=== PATIENT | female | born 1990 | race Caucasian/White ===

== ENCOUNTER 2025-01-20 15:24 | Emergency (ER) | payer OTHER, SELFPAY ==
--- NOTE | 2025-01-20 15:26 | ED.ABDPAIN ---
HPI - Abdominal Pain General Chief Complaint: Abdominal Pain Stated Complaint: abdominal pain Time Seen by Provider: 01/20/25 15:25 Source: patient Mode of arrival: ambulatory Limitations: no limitations History of Present Illness HPI narrative: Patient is a 34-year-old female who presents with generalized abdominal pain for 1 week. Reports it is worsened each day. Patient had CT scan on that her PCP ordered. All it showed was hiatal hernia. Patient states she has had jelly like fatty stools. Reports tenderness to touch even by close. Reports she feels abdomen is distended. History of cholecystectomy and appendectomy. Reports pain in abdomen is now radiating to her back to her shoulder and giving her headache. Patient has tried [id number] pain medication with no relief. Patient has not had any nausea vomiting for 3 days. Related Data Allergies Allergy/AdvReac Type Severity Reaction Status Date / Time No Known Allergies Allergy Mild Unverified 01/20/25 15:35 Review of Systems Review of Systems: All systems reviewed & are unremarkable except as noted in HPI and below Constitutional: Constitutional: Denies body ache(s), Denies chills, Denies fatigue, Denies fever(s), Denies headache(s), Denies malaise and Denies weakness Eyes: Eyes: Denies blurry vision, Denies irritation and Denies loss of vision ENT: Denies otalgia, Denies headache(s), Denies nasal discharge, Denies sinus pain and Denies sore throat Cardiovascular: Cardiovascular: Denies chest pain, Denies irregular heart rhythm and Denies dyspnea Respiratory: Respiratory: Denies dyspnea Gastrointestinal: Gastrointestinal: Reports abdominal pain, Denies melena, Denies hematochezia, Denies diarrhea, Denies nausea and Denies vomiting Musculoskeletal: Musculoskeletal: Denies back pain, Denies myalgias and Denies arthralgias Integumentary/Breasts: Skin/Breast: Denies pruritus and Denies rash Neurologic: Denies headache(s), Denies loss of vision and Denies weakness Psychiatric: Psychiatric: Reports no additional psychiatric complaints Endocrine: Endocrine: Denies fatigue PMFSH Comments At time of signature, agree with nursing past medical, surgical, social and family history. There is no relevant family history pertinent to the presenting complaint. Exam Const: General: cooperative, healthy appearing, comfortable, no acute distress and well nourished Nutritional Appearance: well nourished Orientation/consciousness: patient oriented x3 Limitations: no limitations HENMT: Head: normal to inspection, normocephalic and atraumatic Ears: hearing grossly normal bilaterally and external ears normal Face/Nose/Sinus: Normal external nose present, normal facial exam and face symmetric Face and sinus: normal facial exam and face symmetric Mouth: Yes lip normal Eyes: General: appearance normal, both eyes and all related structures Alignment and Position: alignment normal and position normal Periorbital: periorbital findings normal Eyelids: eyelids normal Pupils: Equal, round and reactive pupils present EOM: EOMs intact bilaterally Neck: Neck: normal visual inspection, full ROM and supple Chest: Chest palpation & inspection: normal inspection of the chest Resp: Effort & Inspection: normal respiratory effort and able to speak in complete sentences Auscultation: clear to auscultation bilaterally Cardio: Rate: regular rate Rhythm: regular rhythm Heart sounds: S1 normal heart sound present and S2 normal heart sound present GI: Inspection: normal to inspection GI Palp: Yes abdominal tenderness, Yes Firmness to palpation present (GI) and No Guarding due to palpation present (GI) Auscultation: normal bowel sounds Rectal Exam: deferred Skin: General skin exam: normal color and no rashes or lesions noted Neuro: General: patient oriented x3 and moves all extremities Cranial nerves: Yes Equal, round and reactive pupils present Speech: normal speech Gait exam (Neuro): Normal gait present Extrem: General: normal to inspection, full ROM and no edema Psych: Appearance: grossly normal and well kempt Mental Status: mental status grossly normal Speech and movement: Normal speech and movement present Affect: normal affect Attitude: cooperative Thought process: Normal thought process present Course Course Emergency Course: Patient being transferred to [facility] for Abdominal pain needing labs, imaging and pain control. Portions of this record may have been created with voice recognition software Level of Care: Express Care Visit Vital Signs Vital signs: Vital Signs Temperature 36.6 C 01/20/25 15:33 Pulse Rate 87 01/20/25 15:33 Respiratory Rate 24 H 01/20/25 15:33 Blood Pressure 119/78 01/20/25 15:33 Pulse Oximetry 100 01/20/25 15:33 Oxygen Delivery Room Air 01/20/25 15:33 Temperature 36.6 C 01/20/25 15:33 Pulse Rate 87 01/20/25 15:33 Respiratory Rate 24 H 01/20/25 15:33 Blood Pressure 119/78 01/20/25 15:33 Pulse Oximetry 100 01/20/25 15:33 Oxygen Delivery Room Air 01/20/25 15:33 Reviewed Transfer Transfered to: [facility] Transportation: ALS Transfer rationale: Abdominal pain needing labs, imaging and pain control. Accepting physician: Felipe WAKEFIELD MDM - Abdominal Pain MDM Narrative Medical decision making narrative: Patient being transferred to [facility] for Abdominal pain needing labs, imaging and pain control. Patient was tearful on examination and diaphoretic. Differential Diagnosis Differential diagnosis: Likely abdominal pain, calculus of kidney, diverticulitis, gastroenteritis, pancreatitis and small bowel obstruction Discharge Plan Discharge Clinical Impression: Abdominal pain Qualifiers: Abdominal location: generalized Qualified Code(s): R10.84 - Generalized abdominal pain Patient Disposition: Acute Care Hospital Condition: Stable Patient Language: Kyrgyz Follow-up/Referrals: UNKNOWN,DOCTOR [Non-Staff] - Time of Disposition: 16:05
[2025-01-20 15:33] VITALS: BP 119/78; PULSE 87; RESP 24; TEMP 36.6; O2SAT 100
--- OUTSIDE RECORDS SUMMARY | 2025-01-20 17:18 | XMS_ITS | Referral Summary ---
Author Organization [facility] Address [address] [place] [address] Care Team Providers Care Embedded Software Test Engineer Name Role Phone Shasha Duckworth MD Primary Care Provider [phone] Encounters Date Type Department Care Team Description 01/20/2025 3:54 PM CDT Emergency [facility] Emergency Department [address] [place] [id number] from Last 3 Months Allergies Active Allergy Reactions Criticality Noted Date Comments Adhesive Rash Medium 10/24/2017 Clindamycin Other (See comments) Low 03/01/2019 Feels like I swallowed glass Duloxetine Metronidazole Itching,Other (See comments) Low 12/21/2018 METRONIDAZOLE GEL Discharge and Pain Pregabalin Other (See comments) Low 03/01/2019 hallucinations Medications diphenhydrAMINE (BENADRYL) 25 mg capsule Take 1 tablet by mouth 3 (three) times a week Active ALPRAZolam (XANAX) 2 mg tablet Take 1 tablet by mouth as needed 5 05/20/2019 Active amitriptyline (ELAVIL) 25 mg tablet Take 1 tablet by mouth daily Active dexmethylphenida te (FOCALIN) 10 mg tablet Take 1 tablet by mouth once a week 0 04/25/2019 Active estazolam (PROSOM) 2 mg tablet Take 1 tablet by mouth daily 5 05/03/2019 Active HYDROcodone-acet aminophen (NORCO) 5-325 mg per tablet TK 1 T PO BID PRF SEVERE PAIN 0 04/25/2019 Active metoprolol XL (TOPROL-XL) 50 mg 24 hr tablet TK 1 T PO QD 0 06/04/2019 Active norelgestromin-e thin.estradiol (ORTHO EVRA) 150-35 mcg/[address] 1 patch on the skin once a week Active tiZANidine (ZANAFLEX) 4 mg tablet 5 05/17/2019 Active Active Problems Problem Noted Date Diagnosed Date Fibromyalgia 04/04/2013 Snoring 02/27/2013 Gastroesophageal reflux disease 02/27/2013 Mitral valve prolapse 02/27/2013 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 Gender Identity Not on file Sexual Orientation Not on file Last Filed Vital Signs Vital Sign Reading Time Taken Comments Blood Pressure 130/90 07/12/2023 4:10 PM CDT Pulse 70 07/12/2023 4:10 PM CDT Temperature 36.1 C (96.9 F) 07/12/2023 12:30 PM CDT Respiratory Rate 18 07/12/2023 4:10 PM CDT Oxygen Saturation 99% 07/12/2023 4:10 PM CDT Inhaled Oxygen Concentration - - Weight 73.5 kg (162 lb) 07/12/2023 12:30 PM CDT Height 167.6 cm (5' 6 ) 07/12/2023 12:30 PM CDT Body Mass Index 26.15 07/12/2023 12:30 PM CDT Plan of Treatment Not on file Medical Devices Implanted Type Area Senior Operations Manager Device Identifier Shelf Expiration Date Model / Serial / Lot Plate Plate Bilateral: Mandible Insurance COMMERCIAL GENERIC [facility] ANTHEM ACCESS CHOICE [facility] Advance Directives For more information, please contact: [phone] * Full Code (Latest Code Status on File) Date Activated Date Inactivated Comments 06/07/2019 9:59 AM 06/07/2019 8:37 PM Care Teams Embedded Software Test Engineer Relationship Specialty Start Date End Date Shasha Duckworth MD PCP - General Nurse Practitioner 07/12/23
--- OUTSIDE RECORDS SUMMARY | 2025-01-20 17:18 | XMS_ITS | Continuity of Care Document ---
Author Organization [facility] Address [address] [place] [address] Phone Care Team Providers Care Floriculture Professor Name Role Phone Paty Toussaint Unavailable Unavailab le Procedures Procedure Date ENDOSCOPIC ULTRASOUND EXAM UPPER GI ENDOSCOPY BIOPSY Advance Directives Directive Yes / No Effective Date File Name No Information Encounters Encounter Description Practice Location Reason(s) For Visit Diagnoses Date Provider Providers Copied on Encounter [facility] [address], [place], [place], [id number], tel:[phone] [facility] No Information [address], [place], [id number] , [place]. tel: [phone] [facility], [address], [place], [place], [address], [place] tel:[phone] [facility] No Information [address] [facility] [address], [place], [address], [place]. tel: [phone] Referring Provider: Key Ceballos, [address] [place], [address]. tel:[phone] [facility], [address], [place], [place], [id number], [place] tel:[phone] [facility] Acute pancreatitis, unspecified complication status, unspecified pancreatitis type [address], [place], [address], [place]. tel: [phone] Family History Family Member Type Diagnosis Age At Onset No Information Payers Payer name Insurance type Covered republican ID Authorfaisal malin(s) No Information Social History Type Description Quantity Date Captured Comments Alcohol Use Details Unknown Caffeine Use Details Unknown Tobacco Use Status No Information Smoking Status No Information Sex Female Chief Complaint And Reason For Visit No Information Reason For Referral Reason For Referral No Information Plan Of Treatment Date Type Action Status Referral Ordered: GI ENDOSCOPIC ULTRASOUND Appointment date/timeframe: 06/07/2019 ordered History Of Present Illness Encounter Date Complaint History Of Prese nt Illness No Information Functional Status Date Functional Assessmen t No Information Instructions Date Instruction Additional Infor mation No Information Assessments Type Assessment Date No Information Patient Care Teams Name Effective Dates (start - stop) Status Members No Information
--- OUTSIDE RECORDS SUMMARY | 2025-01-20 17:18 | XMS_ITS | Clinical Summary ---
Author Organization [facility] [employer] Address [address] [place] [address] Care Team Providers Care Wafer Cutter Name Role Phone Paty Rahman MD Primary Care Provider [phone] Source Comments [facility],non-owned Affiliates and Associated Physician Practices is amultiple site organization consisting of ambulatory clinics and hospital sitesin [place], [place], [place] and [place]. This disclosure is being madepursuant to the Care Everywhere program and may not contain all information available regarding this patient. Last updated 18.[facility] [employer] Allergies Active Allergy Reactions Criticality Noted Date Comments Adhesive Sensitivity Rash Medium 10/24/2017 Clindamycin Other 03/01/2019 Feels like I swallowed glass Duloxetine Other 03/01/2019 hallucinations Pregabalin Other 03/01/2019 hallucinations Metronidazole Itching,Other 12/21/2018 METRONIDAZOLE GEL Discharge and Pain Milnacipran Myalgias,Seizures High 03/18/2016 Patient is unsure about reaction. But states the reaction at the time was very bad. Medications * Be aware that medications may not be up to date on this document. Alwaysverify current medications with the patient. lidocaine (Lidoderm) 5 % patchIndications :Josias-Danlos syndrome (HCC) Apply 1 (one) patch to skin once daily 30 patch 024 Active diphenhydrAMINE (Benadryl Allergy) 25 MG tablet Take 1 (one) tablet by mouth as needed for Allergies Active dicyclomine (Bentyl) 10 MG capsuleIndicatio ns:Irritable Bowel Syndrome Take 1 (one) capsule by mouth 3 times daily as needed Reasons: Irritable Bowel Syndrome 270 capsule 024 Active metoprolol succinate XL 24hr (Toprol XL) 50 MG tabletIndication s:POTS (postural orthostatic tachycardia syndrome) TAKE 1 TABLET BY MOUTH TWICE DAILY 100 tablet 1 024 Active Additional Information Patient taking differently:50 mg OralDAILY, Reported on 11/07/2024 glycopyrrolate (Robinul) 1 MG tabletIndication s:Primary focal hyperhidrosis, unspecified Take 1 (one) tablet by mouth 4 times daily 120 tablet 025 Active tiZANidine (Zanaflex) 4 MG tabletIndication s:Josias-Danlos syndrome (HCC) Take 1 (one) tablet to 3 (three) tablets by mouth every 8 hours as needed for Muscle Spasms 270 tablet 2 025 Active amitriptyline (Elavil) 25 MG tabletIndication s:Insomnia, persistent,Fibro myalgia TAKE 1 TABLET BY MOUTH EVERY EVENING 100 tablet 1 025 Active naltrexone (Revia) 4.5 MG compd capsuleIndicatio ns:Fibromyalgia Take 1 (one) capsule by mouth at bedtime 90 capsule 1 025 Active pancrelipase (Creon) 37899-58035 units capsuleIndicatio ns:Pancreatic Insufficiency Take 1 (one) capsule by mouth 3 times daily with meals Reasons: Pancreatic Insufficiency 90 capsule 5 025 Active suvorexant (Belsomra) 20 MG tabletIndication s:Insomnia, unspecified type Take 1 (one) tablet by mouth nightly as needed for Insomnia 100 tablet 1 025 Active lisdexamfetamine (Vyvanse) 20 MG capsuleIndicatio ns:Attention or concentration deficit Take 1 (one) capsule by mouth once daily 30 capsule 025 Active HYDROcodone-acet aminophen (Fullerton) 5-325 MG tabletIndication s:Other chronic pain Take 1 (one) tablet by mouth every 6 hours as needed for Pain 8 tablet 025 2024 Active cholestyramine light (Questran Light; Prevalite) 4 g packet Take 8 (eight) g by mouth once daily 180 Each 1 025 Active ALPRAZolam (Xanax) 1 MG tabletIndication s:Generalized anxiety disorder Take 0.5 (one-half) tablet to 1 (one) tablet by mouth 2 times daily as needed for Anxiety or Insomnia 60 tablet 025 Active hyoscyamine (Levsin) 0.125 MG IR tablet Take 1 (one) tablet by mouth every 4 hours as needed for Spasms 50 tablet 025 Active HYDROcodone-acet aminophen (NORCO) 5-325 MG tablet Take 1 (one) tablet by mouth every 6 hours as needed for Pain 2024 Discontinued(T x Complete) pancrelipase (Creon) 05119-26956 units capsuleIndicatio ns:Pancreatic Insufficiency Take 1 (one) capsule by mouth 3 times daily with meals Reasons: Pancreatic Insufficiency 90 capsule 5 024 2024 Discontinued(R eorder) cholestyramine light (Questran Light; Prevalite) 4 g packet Take 4 (four) g by mouth once daily 180 Each 1 024 2024 Discontinued(R eorder) suvorexant (Belsomra) 20 MG tabletIndication s:Insomnia, unspecified type Take 1 (one) tablet by mouth nightly as needed for Insomnia 100 tablet 1 025 2024 Discontinued(R eorder) lisdexamfetamine (Vyvanse) 10 MG capsuleIndicatio ns:Attention or concentration deficit Take 1 (one) capsule to 2 (two) capsules by mouth once daily 60 capsule 025 2024 Discontinued(R eorder) ALPRAZolam (Xanax) 1 MG tabletIndication s:Generalized anxiety disorder Take 0.5 (one-half) tablet to 1 (one) tablet by mouth 2 times daily as needed for Anxiety or Insomnia 60 tablet 025 2024 Discontinued(R eorder) cholestyramine light (Questran Light; Prevalite) 4 g packet Take 4 (four) g by mouth once daily 180 Each 1 025 2024 Discontinued(R eorder) cholestyramine light (Questran Light; Prevalite) 4 g packet Take 4 (four) g by mouth once daily 180 Each 1 025 2024 Discontinued Active Problems Problem Noted Date Diagnosed Date History of cholecystectomy 05/09/2024 History of pancreatitis 05/09/2024 Primary focal hyperhidrosis, unspecified 024 Bile leak 05/09/2024 Medical marijuana use 05/09/2024 Bradycardia 04/13/2020 Vaginal discharge 02/09/2018 ADD (attention deficit disorder) 03/13/2017 POTS (postural orthostatic tachycardia syndrome) 03/28/2016 Insomnia, persistent 08/19/2014 Chronic fatigue syndrome 03/27/2013 Fibromyalgia 03/27/2013 Generalized anxiety disorder 03/27/2013 Palpitations 03/27/2013 Sleep stage dysfunction 03/27/2013 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 03/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 Overview (02/08/2021): Overview: Annotation - [id number]: s/p reconstruction 09/03/14 [place] Tremor 03/27/2013 Mitral valve prolapse 02/27/2013 Snoring 02/27/2013 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 Overview (03/02/2015): Resolved Problems Problem Noted Date Diagnosed Date Resolved Date Dehydration 03/17/2020 02/22/2021 Myofascial pain 03/01/2019 05/09/2024 Night sweats 06/26/2018 05/09/2024 Pancreatitis 11/28/2017 05/09/2024 Knee pain, bilateral 06/14/2017 024 Renal colic 01/11/2017 05/09/2024 Jaw pain 08/19/2014 05/09/2024 Esophageal spasm 01/29/2014 05/09/2024 Dysphagia, oropharyngeal phase 12/23/2013 05/09/2024 Encounters Date Type Department Care Team Description 01/20/2025 4:44 PM CDT Emergency [facility] [address] [place] [address] 01/20/2025 Travel [facility]/20/[facility] [address] [place] [address] [address] [place] [address] Paty Rahman MD GI Problem 01/20/2025 Telephone [facility] Internal Medicine [address] [place] [address] [address] [place] [address] Paty Rahman MD Pain Abdominal 01/16/2025 12:10 PM CDT - 01/16/2025 11:59 PM CDT Hospital Encounter [facility] Imaging Services - CT Scan [address] [place] [address], [address] [place] [address] Paty Rahman MD Discharge Disposition: Home or Self Care 01/15/2025 Refill [facility] Internal [address] [phone] Paty Rahman MD Refill Request 01/14/2025 Refill [facility] Internal Medicine [address] [place] [phone] Paty Rahman MD MEDICATION REFILL 01/09/2025 Refill [facility] Internal Medicine [address] [place] [phone] Janes Rodríguez MD MEDICATION REFILL 01/09/2025 Refill [facility] Internal Medicine [address] [place] [phone] Paty Rahman MD MEDICATION REFILL 01/08/2025 Refill [facility] Internal Medicine [address] [place] [phone] Paty Rahman MD Refill Request 01/02/2025 Travel 12/31/2024 11:40 AM CDT Office Visit [facility] Internal Medicine [address] [place] [phone] Paty Rahman MD Preventative health care (Primary Dx); Pancreatic insufficiency; Gastritis without bleeding, unspecified chronicity, unspecified gastritis type; Insomnia, unspecified type; Attention or concentration deficit; Need for hepatitis C screening test; Screening for HIV (human immunodeficiency virus); Generalized abdominal pain; Need for hepatitis B vaccination; Bowel habit changes 12/13/2024 Refill [facility] Internal Medicine [address] [place] [phone] Paty Rahman MD MEDICATION REFILL 12/12/[address] [phone] Paty Rahman MD Refill Request 12/09/[address] [phone] Paty Rahman MD Scheduling (Prefer with PCP ); Update 12/02/[address] [phone] Paty Rahman MD Medication Prior Auth Request 12/02/[address] [phone] Paty Rahman MD Medication Prior Auth Request 12/02/[address] [phone] Paty Rahman MD Medication Prior Auth Request (Belsomra); Rx Dosage From/Quantity Adjustment (Generic Vyvanse) 11/13/2024 Travel 11/07/2024 12:00 PM [employer] Office Visit [address] [place] [address] Eula Onofre APRN-DAISY Generalized anxiety disorder (Primary Dx); Attention or concentration deficit; Pain of finger of left hand; Atypical mole; Ingrown toenail; Primary focal hyperhidrosis, unspecified; Josias-Danlos syndrome; Insomnia, persistent; Weight gain; Fatigue, unspecified type 11/07/2024 Refill [facility] - Internal Medicine [address] [place] [phone] Paty Rahman MD MEDICATION REFILL from Last 3 Months Immunizations Immunization Administration Dates Next Due Covoskar Rosalina primary monoval ent 12+ yr 0.3mL Purple cap 01/02/2021 DTAP, HISTORIC VACCINE 04/06/2015 HEP B VACCINE, ADULT 3 DOSE 12/31/2024 INFLUENZA VACCINE 06/26/2018, 7,07/28/2015,2013,08/14/2012 INFLUENZA VACCINE, QUADR. (F LUZONE; FLULAVAL; FLUARIX; AFLURIA QUADRIVALENT; 6MO+), 0.5 ML (IIV4) 08/09/2021,06/30/2020,06/26/2018,2016,07/28/2015 INFLUENZA VACCINE, TRIV. (FL UZONE; FLULAVAL; FLUARIX; AFLURIA TRIVALENT; 6MO+), 0.5 ML (IIV3) 07/01/2024 TDAP (7yrs+) 09/04/2022,04/09/2015 TDAP, HISTORIC VACCINE 04/06/2015 Family History Medical History Relation Name Comments None Known Brother None Known Father Cancer Maternal Aunt None Known Maternal Grandfather None Known Maternal Grandmother None Known Maternal Uncle Diabetes Mother Hypertension Mother None Known Other None Known Paternal Aunt None Known Paternal Grandfather None Known Paternal Grandmother None Known Paternal Uncle None Known Sister Asthma Neg Hx CVA Neg Hx Cancer - Breast Neg Hx Cancer - Other Neg Hx Cancer - Skin, Melanoma Neg Hx Cancer - Skin, Non Melanoma Neg Hx Eczema Neg Hx Hemophilia Neg Hx Psoriasis Neg Hx Relation Name Status Comments Brother Alive Half brother Father Alive Maternal Aunt Maternal Grandfather Maternal Grandmother Maternal Uncle Mother Alive Other Paternal Aunt Paternal Grandfather Paternal Grandmother Paternal Uncle Sister Alive half sister Social History Tobacco Use Types Packs/Day Years Used Date Smoking Tobacco: Former Cigarettes Q uit: 11/09/2010 Smokeless Tobacco: Never Tobacco Cessation:Counseling Given: Yes Alcohol Use Standard Drinks/Week Comments Yes 0 (1 standard drink = 0.6 oz pur e alcohol) occassional PHQ-2 Answer Date Recorded Patient Health Questionnaire-2 Score 0 12/31/2024 Comments No Sex and Gender Information Value Date Recorded Sex Assigned at Not on file Legal Sex Female 10:08 AM [employer] Gender Identity Female 03/31/2022 6:45 PM CDT Sexual Orientation Not on file Last Filed Vital Signs Vital Sign Reading Time Taken Comments Blood Pressure 137/89 01/20/2025 4:46 PM CDT Pulse 67 01/20/2025 4:46 PM CDT Temperature 36.6 C (97.8 F) 01/20/2025 4:46 PM CDT Respiratory Rate 18 01/20/2025 4:46 PM CDT Oxygen Saturation 100% 01/20/2025 4:46 PM CDT Inhaled Oxygen Concentration - - Weight 81.6 kg (180 lb) 01/20/2025 4:46 PM CDT Height 167.6 cm (5' 6 ) 01/20/2025 4:46 PM CDT Body Mass Index 29.05 01/20/2025 4:46 PM CDT Plan of Treatment Upcoming Encounters Date Type Department Care Team (Late st Contact Info) Description 01/22/2025 9:30 AM CDT Office Visit [facility] - Internal Medicine [address] [place] [phone] Tomasa Srivastava, CLAIMS COUNSEL-BOX INSPECTOR [address] [place] [phone] 04/07/2025 10:40 AM CDT Office Visit [facility] - Internal Medicine [address] [place] [phone] Paty Rahman MD [address] [place] [phone] Health Maintenance Due Date Last Done Comments COVID-19 VACCINE ( season) 2024 10/27/2021, 01/02/2021, 12/10/2020 HEPATITIS B VACCINE (2 of 3 - 19+ 3-dose series) 01/28/2025 12/31/2024 PAP SMEAR 02/22/2025 02/22/2022, 03/11/2021 DTAP/TDAP/TD VACCINES (5 - Td or Tdap) 09/04/2032 09/04/2022, 04/09/2015, 04/06/2015, Additional history exists ZOSTER VACCINE (1 of 2) 2038 INFLUENZA VACCINE Completed 07/01/2024, , 06/30/2020, Additional history exists DEPRESSION SCREENING Completed 11/07/2024, 05/09/20 24 HEPATITIS C SCREENING Completed 01/09/2025 HIV SCREENING Completed 01/09/2025 HIB VACCINE Aged Out No longer eligi ble based on patient's age to complete this topic HPV VACCINE Aged Out No longer eligi ble based on patient's age to complete this topic MENINGOCOCCAL (Group B) VACCINE SHARED DECISION-MAKING Aged Out No longer eligible based on patient's age to complete this topic MENINGOCOCCAL GROUPS A/C/Y/W VACCINE Aged Out No longer eligible based on patient's age to complete this topic PNEUMOCOCCAL VACCINE Aged Out No long er eligible based on patient's age to complete this topic Procedures Procedure Name Priority Date/Time Associated Diagnosis Comments CT ABDOMEN PELVIS W CONTRAST Routine 01/16/2025 3:32 PM CDT Generalized abdominal pain CREATININE - POCT INTERFACED Routine 01/16/2025 1:56 PM CDT HIV-1 HIV-2 ANTIBODY + HIV P24 AG PANEL Routine 01/09/2025 11:49 AM CDT Screening for HIV (human immunodeficiency virus) HEPATITIS C ANTIBODY W RFLX PCR Routine 01/09/2025 11:49 AM CDT Need for hepatitis C screening test HELICOBACTER PYLORI UREA BREATH TEST Routine 01/09/2025 11:46 AM CDT Gastritis without bleeding, unspecified chronicity, unspecified gastritis type from Last 3 Months Results * CT Abdomen Pelvis W Contrast (01/16/2025 3:32 PM CDT) Anatomical Region Laterality Modality Abdomen, Pelvis Computed Tomogra phy 01/16/2025 3:58 PM CDT Impressions 01/16/2025 4:01 PM CDT IMPRESSION: Small hiatal hernia. No acute inflammatory process is seen within the abdomen or pelvis. > Interpreting Provider: Lui Humphreys MD on 01/16/2025 4:01 PM Narrative 01/16/2025 4:01 PM CDT Procedure: CT ABDOMEN PELVIS W CONTRAST Exam Date: 01/16/2025 3:34 PM Location: [facility] CT abdomen and pelvis with IV contrast Indication: R10.84: Generalized abdominal pain Technique: CT examination of the abdomen and pelvis was performed from the lung bases through the pubis symphysis after the administration of oral and IV contrast. Sagittal and coronal reconstructions were performed. Contrast: 100 cc of Isovue-370 was utilized. FINDINGS: No old studies are available for comparison purposes. The lung bases are clear of infiltrate. The visualized bony structures are unremarkable. There is no liver mass. There is no intrahepatic biliary dilatation. The patient is status post cholecystectomy. The pancreas is unremarkable. The spleen is unremarkable. There is no adrenal mass. There is no hydronephrosis. There are no renal calculi. There is no perinephric fat stranding. There is no renal mass. The aorta is normal in caliber. The IVC is normal in caliber. There is no retroperitoneal adenopathy. There is no mesenteric adenopathy. There is a small hiatal hernia. There is no gastric wall thickening. The small bowel loops in the upper abdomen are nondistended with no bowel wall thickening. Oral contrast reaches the colon. The colonic structures within the upper abdomen are normal in caliber with no bowel wall thickening. Within the pelvis: The appendix is not visualized to advantage. However there is no CT evidence for acute appendicitis. The bladder is unremarkable. The uterus is unremarkable. There are no adnexal masses. There is no free fluid within the pelvis. There is no inguinal adenopathy. There is no pelvic adenopathy. The bowel loops within the pelvis are unremarkable. Procedure Note Lui Humphreys MD - 01/16/2025 Procedure: CT ABDOMEN PELVIS W CONTRAST Exam Date: 01/16/2025 3:34 PM Location: [facility] CT abdomen and pelvis with IV contrast Indication: R10.84: Generalized abdominal pain Technique: CT examination of the abdomen and pelvis was performed fromthe lung bases through the pubis symphysis after the administration of oraland IV contrast. Sagittal and coronal reconstructions were performed. Contrast: 100 cc of Isovue-370 was utilized. FINDINGS: No old studies are available for comparison purposes. The lung bases are clear of infiltrate. The visualized bonystructures are unremarkable. There is no liver mass. There is no intrahepatic biliary dilatation.The patient is status post cholecystectomy. The pancreas is unremarkable. The spleen is unremarkable. There is no adrenal mass. There is no hydronephrosis. There are no renal calculi. There is no perinephric fat stranding. There is no renal mass. The aorta is normal in caliber. The IVC is normal in caliber. Thereis no retroperitoneal adenopathy. There is no mesenteric adenopathy. There is a small hiatal hernia. There is no gastric wall thickening. The small bowel loops in the upper abdomen are nondistended with nobowel wall thickening. Oral contrast reaches the colon. The colonicstructures within the upper abdomen are normal in caliber with no bowel wall thickening. Within the pelvis: The appendix is not visualized to advantage.However there is no CT evidence for acute appendicitis. The bladder is unremarkable. The uterus is unremarkable. There are no adnexal masses. There is no free fluid within the pelvis. There is no inguinal adenopathy. There is no pelvic adenopathy. The bowel loops withinthe pelvis are unremarkable. IMPRESSION: Small hiatal hernia. No acute inflammatory process is seen within the abdomen or pelvis. > Interpreting Provider: Lui Humphreys MD on 01/16/2025 4:01 PM us Paty Rahman MD CT ORDERABLES Final Result * CREATININE - POCT INTERFACED (01/16/2025 1:56 PM CDT) Creatinine POCT 0.73 0.70 - 1.20 mg/dL 01/16/2025 2:06 PM CDT [facility] eGFR >90 >=90 mL/min/1.7 3 m2 01/16/2025 2:06 PM CDT [facility] Blood BLOOD SPECIMEN / Unknown 01/16/2025 1:56 PM CDT 01/16/2025 2:06 PM CDT us Paty Rahman MD LAB - POINT OF CARE ORDERABLES Final Result [facility] [address] [place] [address] * HEPATITIS C ANTIBODY W RFLX PCR (01/09/2025 11:49 AM CDT) Hepatitis C Antibody Non Reactive Non Reactive [facility] INSURANCE BILL Comment: Performed at: - [address] [id number] End Lathe Operator: Anil Hall PhD, Phone: [phone] Interpretation Comment [facility] INSURANCE BILL Comment: Not infected with HCV unless early or acute infection is suspected (which may be delayed in an immunocompromised individual), or other evidence exists to indicate HCV infection. Blood BLOOD SPECIMEN / Unknown 01/09/2025 11:49 AM CDT 01/09/2025 Narrative [facility] INSURANCE BILL - 01/10/2025 7:09 AM CDT Performed at: [address] [id number] End Lathe Operator: Anil Hall PhD, Phone: [phone] us Paty Rahman MD LAB - CHEMISTRY ORDERABLES Fin al Result Performing Organization Address City/[facility] Co de Phone Number [facility] INSURANCE BILL [address] [place] [address] * HIV-1 HIV-2 ANTIBODY + HIV P24 AG PANEL (01/09/2025 11:49 AM CDT) HIV Screen 4th Generation w Reflex Non Reactive Non Reactive [facility] INSURANCE BILL Comment: HIV-1/HIV-2 antibodies and HIV-1 p24 antigen were NOT detected. There is no laboratory evidence of HIV infection. HIV Negative Blood BLOOD SPECIMEN / Unknown 01/09/2025 11:49 AM CDT 01/09/2025 Narrative [facility] INSURANCE BILL - 01/10/2025 7:09 AM CDT Performed at: 01 - [facility] [address] [place], [place] [id number] End Lathe Operator: Anil Hall PhD, Phone: [phone] Paty Rahman MD LAB - CHEMISTRY ORDERABLES Fin al Result Performing Organization Address City/[facility]/ZIP Co de Phone Number [facility] INSURANCE BILL [address] [place] [address] * HELICOBACTER PYLORI UREA BREATH TEST (01/09/2025 11:46 AM CDT) Helicobacter pylori Breath Negative Negative [facility] INSURANCE BILL Microbiology BREATH / Unknown 01/09/2025 11:46 AM CDT 01/09/2025 Narrative [facility] INSURANCE BILL - 01/10/2025 3:10 PM CDT Performed at: [facility] [id number] End Lathe Operator: Anil Hall PhD, Phone: [phone] Paty Rahman MD LAB - MICROBIOLOGY ORDERABLES Final Result Performing Organization Address [facility]/ZIP Co de Phone Number [facility] INSURANCE BILL [address] [place] [address] from Last [address] [place] [address] MEDICAID - OUT OF STATE [place] [facility] [place]: [facility] [id number] [place] [address] COMMERCIAL GENERIC Care Teams Wafer Cutter Relationship Specialty Start Date End Date Paty Rahman MD [address] [place] [phone] PCP - General Internal Medicine 05/09/24
--- OUTSIDE RECORDS SUMMARY | 2025-01-20 17:18 | XMS_ITS | Encounter Summary ---
Author Organization [facility] Address [address] [facility] [address] Care Team Providers Care Atomizer Assembler Name Role Phone Key Ceballos MD Primary Care Provider [phone] Abhinav Grajeda MD Primary Care Provider [phone] Key Ceballos MD Primary Care Provider [phone] Paty Rahman MD Primary Care Provider [phone] Reason for Visit * Reason Onset Date Comments Endometriosis 08/07/2020 Encounter Details Date Type Department Care Team (Late st Contact Info) Description 08/07/2020 Telephone [facility] [address] [place] [address] Semaj Owens Jr., MD [address] [facility] [address] [place], [place] [phone] Endometriosis Social History Tobacco Use Types Packs/Day Years Used Date Smoking Tobacco: Former Cigarettes Q uit: 11/09/2010 Smokeless Tobacco: Never Alcohol Use Standard Drinks/Week Comments Yes 0 (1 standard drink = 0.6 oz pur e alcohol) occassional Comments No Sex and Gender Information Value Date Recorded Sex Assigned at Not on file Legal Sex Female 10:08 AM CONE CHOCOLATE DIPPER Gender Identity Female 03/31/2022 6:45 PM CDT Sexual Orientation Not on file documented as of this encounter Miscellaneous Notes * Telephone Encounter - John Ryder - 08/07/2020 1:01 PM CDT Pt calling to report that she is having extreme cramps w/pain and is very fatigue. Pt is scheduled for surgery in Nov 2020 and says she cannot wait that long as the pain is unbearable. Pt would like to speak with MD or Nurse as soon as possible. Pt's CB #; [phone] documented in this encounter Plan of Treatment Upcoming Encounters Date Type Department Care Team (Late st Contact Info) Description 01/22/2025 9:30 AM CDT Office Visit [facility] - Internal Medicine [address] [place] [phone] Tomasa Srivastava, 3RD GRADE TEACHER-SHANK SANDER [address] [place] [phone] 04/07/2025 10:40 AM CDT Office Visit [facility] - Internal Medicine [address] [place] [phone] Paty Rahman MD [address] [place] [phone] documented as of this encounter Visit Diagnoses Not on filedocumented in this encounter Care Teams Atomizer Assembler Relationship Specialty Start Date End Date Key Ceballos MD PCP - General 11/05/20 11/09/20 Abhinav Grajeda MD [address] [place] [id number] PCP - General 03/20/20 11/04/20 Key Ceballos MD [address] [place] [address] PCP - General Internal Medicine 03/31/22 05/08/24 Paty Rahman MD [address] [address] PCP - General Internal Medicine 05/09/24 documented as of this encounter
--- OUTSIDE RECORDS SUMMARY | 2025-01-20 17:18 | XMS_ITS | Encounter Summary ---
Author Organization [facility] Address [address] [facility] [place] [address] Care Team Providers Care Sales Support Administrator Name Role Phone Paty Rahman MD Primary Care Provider [phone] Reason for Visit * Reason Onset Date Comments GI Problem 01/20/2025 Encounter Details Date Type Department Care Team (Late st Contact Info) Description 01/20/2025 Telephone [facility] Medical [facility] - Internal Medicine [address] [facility] [address] [place] [phone] Paty Rahman MD [address] [place] [phone] GI Problem Social History Tobacco Use Types Packs/Day Years [...] on file Legal Sex Female 10:08 AM PUMP OPERATOR Gender Identity Female 03/31/2022 6:45 PM CDT Sexual Orientation Not on file documented as of this encounter Miscellaneous Notes * Telephone Encounter - Eli Eaton LPN - 01/20/2025 1:55 PM CDT Called to patient. * Telephone Encounter - Paty Rahman MD - 01/20/2025 12:25 PM CDT Agree, small hiatal hernia is unlikely causing severe abdominal symptoms. Given the severity of herabdominal pain, I would not be able to treat that over the phone. She would need to go to urgent care or ER. I did send a prescription for Levsin as she stated dicyclomine had helped in the past. This is similar. Orders Placed This Encounter hyoscyamine (Levsin) 0.125 MG IR tablet Sig: Take 1 (one) tablet by mouth every 4 hours as needed for Spasms Dispense: 50 tablet Refill: 0 * Telephone Encounter - Eli Eaton LPN - 01/20/2025 8:53 AM CDT Warm transfer from service center. Due to hernia on CT . Pain from beasts to pelvis. Swollen and tender. Extra large pajama bottoms do not fit. In bed for 5days. Has had abdominal distention off and on for a few hours to a day, this time it has lasted a week. Headache, back, shoulders, legs hurt. Movement hurts bad. If she gets out of bed to get something, she has to lie down on the floor for awhile before returning to bed-due to increase pain. Nauseated. Vomited a tiny bit one time. Diarrhea-for months. Every time she urinates she also has loose stool. Here 12/31/24. Much worse since then. Saw GI, didn't follow up. Dr. Viridiana Arechiga. She says she was too sick. Cholestyramine not helping. Peppermint not helping. Stopped taking Elavil due to weight gain. Bentyl usually helps, but has not helped this past week. I let her know that hiatal hernia is incidental finding, and not likely to be causing these symptoms. documented in this encounter Plan of Treatment Upcoming Encounters Date Type Department Care Team (Late st Contact Info) Description 01/22/2025 9:30 AM CDT Office Visit [facility] Internal Medicine [address] [place] [phone] Tomasa Srivastava, OIL BURNER JOURNEYMAN-[address] [phone] 04/07/2025 10:40 AM CDT Office Visit [facility] Internal Medicine [address] [place] [phone] Paty Rahman MD [address] [place] [phone] documented as of this encounter Visit Diagnoses Not on filedocumented in this encounter Care Teams Sales Support Administrator Relationship Specialty Start Date End Date Paty Rahman MD [address] [place] [phone] PCP - General Internal Medicine 05/09/24 documented as of this encounter
--- OUTSIDE RECORDS SUMMARY | 2025-01-20 17:18 | XMS_ITS | Encounter Summary ---
Author Organization [facility] Address [address] [place] [address] Care Team Providers Care Day Care Worker Name Role Phone Shasha Duckworth MD Primary Care Provider [phone] Encounter Details Date Type Department Care Team (Late st Contact Info) Description 01/20/2025 3:54 PM CDT Emergency [facility] Emergency Department [address] [place] [address] Social History Tobacco Use Types Packs/Day Years Used Date Smoking Tobacco: Former Smokeless Tobacco: Never Alcohol Use Standard Drinks/Week Comments Yes 0 (1 standard drink = 0.6 oz pure alcohol) once every two weeks-[facility] beers Personal Safety Answer Date Recorded Have you ever been in or are you currently in a harmful physical or emotional relationship or is someone making you feel afraid or unsafe? Denies 07/12/2023 Comments No Sex and Gender Information Value Date Recorded Sex Assigned at Not on file Legal Sex Female 12:48 PM PRESS WRITER Gender Identity Not on file Sexual Orientation Not on file documented as of this encounter Miscellaneous Notes * ED Pre-Arrival Note - Rosa Ochoa RN - 01/20/2025 3:55 PM CDT Pre-Arrival Note Call from [facility], pt with abd pain and distention. Had CT on showing no acute process. Rosa Ochoa RN documented in this encounter Plan of Treatment Not on file documented as of this encounter Visit Diagnoses Not on filedocumented in this encounter Care Teams Day Care Worker Relationship Specialty Start Date End Date Shasha Duckworth MD PCP - General Nurse Practitioner 07/12/23 documented as of this encounter
--- OUTSIDE RECORDS SUMMARY | 2025-01-20 17:18 | XMS_ITS | Encounter Summary ---
Author Organization [facility] Address [address] [facility] [place] [address] Care Team Providers Care Head Start Assistant Teacher Name Role Phone Paty Rahman MD Primary Care Provider [phone] Reason for Visit * Reason Onset Date Comments MEDICATION REFILL 01/09/2025 Encounter Details Date Type Department Care Team (Late st Contact Info) Description 01/09/2025 Refill [facility] Medical [facility] - Internal Medicine [address] [facility] [address] [place] [phone] Paty Rahman MD [address] [place] [phone] MEDICATION REFILL Social History Tobacco Use Types Packs/Day Years [...] on file Legal Sex Female 10:08 AM DIGITAL ENGINEER Gender Identity Female 03/31/2022 6:45 PM CDT Sexual Orientation Not on file documented as of this encounter Miscellaneous Notes * Telephone Encounter - Aster Cary - 01/10/2025 12:13 PM CDT Refill request denied because Duplicate documented in this encounter Plan of Treatment Upcoming Encounters Date Type Department Care Team (Late st Contact Info) Description 01/22/2025 9:30 AM CDT Office Visit [facility] Internal Medicine [address] [place] [phone] Tomasa Srivastava, OPERATIONS CONTROLLER-VENDING MACHINE ASSEMBLER [address] [place] [phone] 04/07/2025 10:40 AM CDT Office Visit [facility] Internal Medicine [address] [place] [phone] Paty Rahman MD [address] [place] [phone] documented as of this encounter Visit Diagnoses Diagnosis Pancreatic insufficiency (HCC) Other specified disease of pancreas documented in this encounter Care Teams Head Start Assistant Teacher Relationship Specialty Start Date End Date Paty Rahman MD [address] [place] [phone] PCP - General Internal Medicine 05/09/24 documented as of this encounter
--- OUTSIDE RECORDS SUMMARY | 2025-01-20 17:18 | XMS_ITS | Encounter Summary ---
Author Organization [facility] Address [address] [place] [address] Care Team Providers Care Unit Trust Manager Name Role Phone Paty Rahman MD Primary Care Provider [phone] Reason for Visit * Reason Onset Date Comments Scheduling 12/09/2024 Prefer with PCP Update 12/09/2024 Encounter Details Date Type Department Care Team (Late st Contact Info) Description 12/09/2024 Telephone [facility] Medical [facility] - Internal Medicine [address] [facility] [address] [place] [phone] Paty Rahman MD [address] [place] [phone] Scheduling (Prefer with PCP ); Update Social History Tobacco Use Types Packs/Day Years Used Date Smoking Tobacco: Former Cigarettes Q uit: 11/09/2010 Smokeless Tobacco: Never Alcohol Use Standard Drinks/Week Comments Yes 0 (1 standard drink = 0.6 oz pur e alcohol) occassional PHQ-2 Answer Date Recorded Patient Health Questionnaire-2 Score 2 12/08/2024 Comments No Sex and Gender Information Value Date Recorded Sex Assigned at Not on file Legal Sex Female 10:08 AM INSULATION CUPOLA OPERATOR Gender Identity Female 03/31/2022 6:45 PM CDT Sexual Orientation Not on file documented as of this encounter Miscellaneous Notes * Telephone Encounter - Shirlene Julian LPN - 12/10/2024 2:34 PM INSULATION CUPOLA OPERATOR Addressed in my chart LATION CUPOLA OPERATOR * Telephone Encounter - Conchis Lindsey RN - 12/09/2024 1:46 PM INSULATION CUPOLA OPERATOR Called x 2 Each time call was picked up, but could not hear anyone speaking. Nobody responded to this RN, and unable to leave a VM. Sent Elastra message to pt. - please see Elastra encounter dated 12/09/24 CANCELLED APPOINTMENT Conchis Lindsey RN LATION CUPOLA OPERATOR * Telephone Encounter - Mirela Lindsey - 12/09/2024 12:53 PM INSULATION CUPOLA OPERATOR Patient is calling back and need visit ERIK with PCP. Unable to do Monday but will be open if needed, prefer visit after lunch between 1 pm and 4 pm, or around mid morning between 9 am and 11 am. She is needing visit for medication and due to her body is falling apart . Prefer visit with PCP. Aware can take 24-48 hours for call back. Call back ERIK to discuss scheduling options. LATION CUPOLA OPERATOR * Telephone Encounter - Onesimo Peter - 12/09/2024 8:09 AM CST Who is calling? SELF What is the reason for call? Patients appt with PCP was cancelled today, she said it is very very important she see's her soon, she is having issues with medications and other things the ENOLOGIST could nothelp her with Expected Response from the Clinic? Call back Did you notify caller it would take 24-48 hours for the office to get back to them? NOT APPLICABLE LATION CUPOLA OPERATOR documented in this encounter Plan of Treatment Upcoming Encounters Date Type Department Care Team (Late st Contact Info) Description 01/22/2025 9:30 AM CDT Office Visit [facility] - Internal Medicine [address] [place] [address] [address] [place] [phone] Tomasa Srivastava, CITIZENSHIP TEACHER-AUXILIARY POWER EQUIPMENT OPERATOR [address] [phone] 04/07/2025 10:40 AM CDT Office Visit [facility] Internal Medicine [address] [place] [address] [address] [place] [phone] Paty Rahman MD [address] [place] [phone] documented as of this encounter Visit Diagnoses Not on filedocumented in this encounter Care Teams Unit Trust Manager Relationship Specialty Start Date End Date Paty Rahman MD [address] [place] [phone] PCP - General Internal Medicine 05/09/24 documented as of this encounter
--- OUTSIDE RECORDS SUMMARY | 2025-01-20 17:18 | XMS_ITS | Clinical Summary ---
Author Organization [facility] Address [address] [place] [phone] Phone Care Team Providers Care Safety Trainer Name Role Phone Key Ceballos MD Primary Care Provider Allergies Active Allergy Reactions Criticality Noted Date Comments Adhesive Rash Low 10/24/2017 Clindamycin Other (See Comments),Unknown High 03/01/2019 Feels like I swallowed glass Feels like I swallowed glass Feels like I swallowed glass Medications ALPRAZolam (XANAX) 2 mg tablet Take 2 mg by mouth 3 times daily as needed for Anxiety. Active tiZANidine (ZANAFLEX) 4 mg Tablet Take 4 mg by mouth every 6 hours as needed for Spasm. Active metoprolol tartrate (LOPRESSOR) 50 mg tablet Take 50 mg by mouth daily. Active amitriptyline (ELAVIL) 25 mg tablet Take 25 mg by mouth daily at bedtime. Active HYDROcodone-acet aminophen (NORCO) 5-325 mg tablet Take 1 Tablet by mouth every 4 hours as needed for Pain, Moderate. Active dicyclomine (BENTYL) 10 mg capsule Take 10 mg by mouth 2 times daily as needed. Active Active Problems No known active problems Social History Tobacco Use Types Packs/Day Years Used Date Smoking Tobacco: Former Cigarettes Q uit: 10/24/2009 Smokeless Tobacco: Never Alcohol Use Standard Drinks/Week Comments Yes 0 (1 standard drink = 0.6 oz pur e alcohol) occasional Comments No Sex and Gender Information Value Date Recorded Sex Assigned at Not on file Legal Sex Female 6:19 AM WELFARE SUPERVISOR Gender Identity Not on file Sexual Orientation Not on file Last Filed Vital Signs Vital Sign Reading Time Taken Comments Blood Pressure 123/90 02/26/2021 1:10 PM CDT Pulse 81 02/26/2021 1:10 PM CDT Temperature 36.8 C (98.3 F) 02/26/2021 1:10 PM CDT Respiratory Rate 16 10/24/2017 11:44 AM WELFARE SUPERVISOR Oxygen Saturation 95% 02/26/2021 1:10 PM CDT Inhaled Oxygen Concentration - - Weight 70.3 kg (155 lb) 02/26/2021 1:10 PM CDT Height 167.6 cm (5' 6 ) 02/26/2021 1:10 PM CDT Body Mass Index 25.02 02/26/2021 1:10 PM CDT Plan of Treatment Health Maintenance Due Date Last Done Comments HEPATITIS B VACCINES (1 of 3 - 19+ 3-dose series) 2007 HPV/Cotest (21-29) 2009 CERVICAL CANCER SCREENING 2018 HPV/Cotest (30-65) 2018 PAP SMEAR 2018 INFLUENZA VACCINE (#1) 2024 06/30/2020 DTAP/TDAP/TD VACCINES (2 - T d or Tdap) 04/09/2025 04/09/2015 HPV VACCINES Aged Out No longer eligi ble based on patient's age to complete this topic Insurance MEDICAID Care Teams Safety Trainer Relationship Specialty [place] [id number] [address] PCP - General Internal Medicine 10/24/17
--- OUTSIDE RECORDS SUMMARY | 2025-01-20 17:18 | XMS_ITS | Clinical Summary ---
Author Organization 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 Emergency Department [address] [place] [address] from Last 3 Months Surgical History Surgery Date Site/Laterality Comments ANTERIOR CRUCIATE LIGAMENT REPAIR Primary Repair Of Knee Ligament Cruciate Anterior - (Added by TW Conv) APPENDECTOMY CHOLECYSTECTOMY MANDIBLE FRACTURE SURGERY COLONOSCOPY UPPER GASTROINTESTINAL ENDOSCOPY Medical History Medical History Date Comments Personal history of neurosis Gen eralized Anxiety Disorder - (Added by TW Conv) Personal history of other in fectious and parasitic diseases History of infectious mononu cleosis - (Added by TW Conv) History of recurrent pneumonia H istory of bacterial pneumonia - (Added by TW Conv) Personal history of other di seases of the respiratory system Personal history of asthma - (Added by TW Conv) Anemia Irritable bowel syndrome GERD (gastroesophageal reflux disease) Josias-Danlos disease Mitral valve prolapse POTS (postural orthostatic t achycardia syndrome) Migraine Anxiety ADHD (attention deficit hype ractivity disorder) Fibromyalgia Family History Medical History Relation Name Comments Asthma Father Asthma - (Added by TW Conv) Diabetes Mother Diabetes Mellit us - (Added by TW Conv) Relation Name Status Comments Father Mother Social History Tobacco Use Types Packs/Day Years Used Date Smoking Tobacco: Former Smokeless Tobacco: Never Tobacco Cessation:Counseling Given: Not Answered Alcohol Use Standard Drinks/Week Comments Yes 0 (1 standard drink = 0.6 oz pure alcohol) once every two weeks-couple beerlorri Personal Safety Answer Date Recorded Have you ever been in or are you currently in a harmful physical or emotional relationship or is someone making you feel afraid or unsafe? Denies 07/12/2023 Comments No Sex and Gender Information Value Date Recorded Sex Assigned at Not on file Legal Sex Female 12:48 PM SIGN CARPENTER Gender Identity Not on file Sexual Orientation Not on file Obstetrics History Last Filed Vital Signs Vital Sign Reading [...] 07/12/2023 12:30 PM CDT Plan of Treatment Health Maintenance Due Date Last Done Comments Cervical Cancer Screening 1988 Depression Screening 1988 Hepatitis C Screening 1988 Varicella Vaccines (1 of 2 - 13+ 2-dose series) 2001 Hepatitis B Screening 2006 Regular Well Visit/Exam 18-64 2006 Covid-19 Vaccine ( season) 2024 10/27/2021, 01/02/2021, 12/10/2020 Influenza Vaccine (#1) 2024 , 06/30/2020, 06/26/2018, Additional history exists DTaP/Tdap/Td Vaccine (5 - Td or Tdap) 09/04/2032 09/04/2022, 04/09/2015, 04/06/2015, Additional history exists HPV Vaccines Aged Out No longer eligi ble based on patient's age to complete this topic Pneumococcal vaccine <65 Aged Out No longer eligible based on patient's age to complete this topic Medical Devices Implanted Type Area Employment Director Device Identifier Shelf Expiration Date Model / Serial / Lot Plate Plate Bilateral: Mandible Insurance COMMERCIAL GENERIC [facility] Transaction Wireless CHOICE [facility] Advance Directives For more information, please contact: [phone] * Full Code (Latest Code Status on File) Date Activated Date Inactivated Comments 06/07/2019 9:59 AM 06/07/2019 8:37 PM Care Teams Lobby Porter Relationship Specialty Start Date End Date Shasha Duckworth MD PCP - General Nurse Practitioner 07/12/23
--- OUTSIDE RECORDS SUMMARY | 2025-01-20 17:18 | XMS_ITS | Continuity of Care Document ---
Author Organization [facility] Address [address] [place] [address] Phone Care Team Providers Care Overlock Hemmer Name Role Phone Messina OD, Jack Unavailable Unavailable Procedures Procedure Date Contact Lens Hydrophilic, Spherical Medical Tax Eye Exam & Treatment Contact Lens Hydrophilic, Spherical Espion Limited Medical Refraction Contact Lens/es Other Type LoveThatFit Eye Exam & Treatment Refraction CL Replacement - Vistakon Disp W/BW Soft [employer] Medical CL Replacement - Vistakon Disp W/BW Soft LoveThatFit CL Replacement - Vistakon Disp W/BW Soft LoveThatFit Eye Exam & Treatment Refraction CL Replacement - Vistakon Disp W/BW Soft LoveThatFit CL Replacement - Vistakon Disp W/BW Soft LoveThatFit CL Replacement - Vistakon Disp W/BW Soft LoveThatFit Eye Exam, New Patient Refraction Advance Directives Directive Yes / No Effective Date File Name No Information Encounters Encounter Description Practice Location Reason(s) For Visit Diagnoses Date Provider Providers [facility] [address], [place], [place], [id number], [place] tel:[phone] [facility] No Information Sep 6-201 0 Messina OD Jack. [address], [place], [place], [facility], [place]. tel:[phone] Referring Provider: Jack Messina OD A, [address], [place], [facility]. tel:[phone] [facility], [address], [place], [place], [id number], [place] tel:[phone] [facility] No Information 9-201 0 Messina OD Jack. [address], [place], [facility], [place]. tel:[phone] [facility], [address], [place], [place], [id number], [place] tel:[phone] [facility] No Information 2 4-200 9 Messina OD Jack. [address] [facility] [address], [place], [facility], [place]. tel:[phone] [facility], [address], [place], [place], [id number], [place] tel:[phone] [facility] No Information Fe-2 6-200 9 Messina OD Jack. [address], [place], [facility], [place]. tel:[phone] [facility], [address], [place], [place], [id number], [place] tel:[phone] [facility] No Information Apr- 4-200 8 Messina OD Jack. [address], [place], [facility], [place]. tel:[phone] [facility], [address], [place], [place], [id number], tel:[phone] [facility] No Information Tyrone-0 2-200 8 Messina OD Jack. [address] [facility] , [address], [place], [facility], . tel:[phone] [facility], [address], [place], [place], [id number], tel:[phone] [facility] No Information Oct-2 4-200 8 Messina OD Jack. [address] [facility] , [address], [place], [facility], . tel:[phone] [facility], [address] [place] [address] [address], [place], [place], [address], tel:[phone] [facility] No Information Tyrone-0 8-200 7 Messina OD Jack. [address] [facility] , [address], [place], [facility], . tel:[phone] [facility], [address] [place] [address] [address], [place], [place], [id number], tel:[phone] [facility] No Information 2 5-200 7 Messina OD Jack. [address] [facility] , [address], [place], [facility], . tel:[phone] [facility], [address] [place] [address] [address], [place], [place], [id number], tel:[phone] [facility] No Information Oct-0 9-200 7 Messina OD Jack. [address] [facility] , [address], [place], [facility], . tel:[phone] Family History Family Member Type Diagnosis Age At Onset No Information Payers Payer name Insurance type Covered constitution party ID Authoriza tion(s) No Information Social History Type Description Quantity Date Captured Comments Sex Female Smoking Status No Information Chief Complaint And Reason For Visit No Information Reason For Referral Reason For Referral No Information History Of Present Illness Encounter Date Complaint History Of Prese nt Illness No Information Functional Status Date Functional Assessmen t No Information Instructions Date Instruction Additional Infor mation No Information Assessments Type Assessment Date No Information Patient Care Teams Name Effective Dates (start - stop) Status Members No Information
--- OUTSIDE RECORDS SUMMARY | 2025-01-20 17:18 | XMS_ITS | Encounter Summary ---
Author Organization [facility] Address [address] [place] [address] Care Team Providers Care Box Estimator Name Role Phone Ptay Rahman MD Primary Care Provider Reason for Visit * Reason Onset Date Comments MEDICATION REFILL 08/01/2024 Encounter Details Date Type Department Care Team (Late Contact Info) Description 08/01/2024 Refill [facility] - Internal Medicine [address] [place] [phone] Paty Rahman MD [address] [place] [phone] MEDICATION REFILL Social History Tobacco Use Types Packs/Day Years Used Date Smoking Tobacco: Former Cigarettes Q uit: 11/09/2010 Smokeless Tobacco: Never Alcohol Use Standard Drinks/Week Comments Yes 0 (1 standard drink = 0.6 oz pur e alcohol) occassional PHQ-2 Answer Date Recorded Patient Health Questionnaire-2 Score 0 07/01/2024 Comments No Sex and Gender Information Value Date Recorded Sex Assigned at Not on file Legal Sex Female 10:08 AM HOUSE PARENT Gender Identity Female 03/31/2022 6:45 PM CDT Sexual Orientation Not on file documented as of this encounter Plan of Treatment Upcoming Encounters Date Type Department Care Team (Late Contact Info) Description 01/22/2025 9:30 AM CDT Office Visit [facility] - Internal Medicine [address] [place] [phone] Tomasa Srivastava, SKIMMER SCOOP OPERATOR-CARE PROGRAM RESIDENT [address] [place] [phone] 04/07/2025 10:40 AM CDT Office Visit [facility] Internal Medicine [address] [place] [phone] Paty Rahman MD [address] [place] [phone] documented as of this encounter Visit Diagnoses Diagnosis Primary focal hyperhidrosis, unspecified Attention deficit disorder, unspecified hyperactivity presence Generalized anxiety disorder documented in this encounter Care Teams Box Estimator Relationship Specialty Start Date End Date Paty Rahman MD [address] [place] [phone] PCP - General Internal Medicine 05/09/24 documented as of this encounter
--- OUTSIDE RECORDS SUMMARY | 2025-01-20 17:18 | XMS_ITS | Encounter Summary ---
Author Organization [facility] Address [address] [place] [address] Care Team Providers Care Hair Specialist Name Role Phone Paty Rahman MD Primary Care Provider [phone] Reason for Visit * Reason Onset Date Comments Question 08/23/2024 Appointment 08/23/2024 Reminder Call 08/23/2024 Encounter Details Date Type Department Care Team (Late st Contact Info) Description 08/23/2024 Telephone [facility] Medical [facility] - Internal Medicine [address] [facility] [address] [place] [phone] Paty Rahman MD [address] [place] [address] [place] [phone] Question; Appointment; Reminder Call Social History Tobacco Use Types Packs/Day Years [...] on file Legal Sex Female 10:08 AM TECHNICAL BUSINESS SYSTEMS ANALYST Gender Identity Female 03/31/2022 6:45 PM CDT Sexual Orientation Not on file documented as of this encounter Miscellaneous Notes * Telephone Encounter - Jo Ann Cano - 08/23/2024 12:22 PM CST Who is calling? Patient If other than self is caller listed on the HIPAA? yes What is the reason for call? Patient called requesting to reschedule her Aug 27 appointment. Patient would like to be seen only with the doctor. Expected Response from the Clinic? ( ex. Call back, etc..) [phone] Did you notify caller it would take 24-48 hours for the office to get back to them? YES NICAL BUSINESS SYSTEMS ANALYST documented in this encounter Plan of Treatment Upcoming Encounters Date Type Department Care Team (Late st Contact Info) Description 01/22/2025 9:30 AM CDT Office Visit [facility] - Internal Medicine [address] [place] [phone] Tomasa Srivastava, SALES AND MARKETING AGENT-SAUSAGE WRAPPER [address] [place] [phone] 04/07/2025 10:40 AM CDT Office Visit [facility] - Internal Medicine [address] [place] [phone] Paty Rahman MD [address] [place] [phone] documented as of this encounter Visit Diagnoses Not on filedocumented in this encounter Care Teams Hair Specialist Relationship Specialty Start Date End Date Paty Rahman MD [address] [place] [phone] PCP - General Internal Medicine 05/09/24 documented as of this encounter
--- OUTSIDE RECORDS SUMMARY | 2025-01-20 17:18 | XMS_ITS | Encounter Summary ---
Author Organization [facility] Address [address] [facility] [address] [place] [address] Care Team Providers Care Machine Ii Cutter Name Role Phone Paty Rahman MD Primary Care Provider [phone] Encounter Details Date Type Department Care Team (Latest Contact Info) Description 01/20/2025 Travel Social History Tobacco Use Types Packs/Day Years [...] on file Legal Sex Female 10:08 AM MIXER DRY FOOD PRODUCTS Gender Identity Female 03/31/2022 6:45 PM CDT Sexual Orientation Not on file documented as of this encounter Plan of Treatment Upcoming Encounters Date Type Department Care Team (Late st Contact Info) Description 01/22/2025 9:30 AM CDT [facility] - Internal Medicine [address] [place] [phone] Tomasa Srivastava, ROTARY FURNACE TENDER-TEACHER DANCING [address] [place] [phone] 04/07/2025 10:40 AM CDT Office [facility] - Internal Medicine [address] [place] [address] [address] [place] [phone] Paty Rahman MD [address] [place] [phone] documented as of this encounter Visit Diagnoses Not on filedocumented in this encounter Care Teams Machine Ii Cutter Relationship Specialty Start Date End Date Paty Rahman MD [address] [place] [phone] PCP - General Internal Medicine 05/09/24 documented as of this encounter
--- OUTSIDE RECORDS SUMMARY | 2025-01-20 17:18 | XMS_ITS | Encounter Summary ---
Author Organization [facility] Address [address] [facility] [place] [address] Care Team Providers Care Information Systems Coordinator Name Role Phone Paty Rahman MD Primary Care Provider [phone] Reason for Visit * Reason Onset Date Comments Medication Prior Auth Request 12/02/2024 Be lsomra Rx Dosage From/Quantity Adjustment 12/02/2024 Generic Vyvanse Encounter Details Date Type Department Care Team (Late st Contact Info) Description 12/02/2024 Telephone [facility] Medical [facility] - Internal Medicine [address] [facility] [address] [place] [phone] Paty Rahman MD [address] [place] [phone] Medication Prior Auth Request (Belsomra); Rx Dosage From/Quantity Adjustment (Generic Vyvanse) Social History Tobacco Use Types Packs/Day Years Used Date Smoking Tobacco: Former Cigarettes Q uit: 11/09/2010 Smokeless Tobacco: Never Alcohol Use Standard Drinks/Week Comments Yes 0 (1 standard drink = 0.6 oz pur e alcohol) occassional PHQ-2 Answer Date Recorded Patient Health Questionnaire-2 Score 0 11/07/2024 Comments No Sex and Gender Information Value Date Recorded Sex Assigned at Not on file Legal Sex Female 10:08 AM ELECTRICIAN HELPER Gender Identity Female 03/31/2022 6:45 PM CDT Sexual Orientation Not on file documented as of this encounter Miscellaneous Notes * Telephone Encounter - Mirela Lindsey - 12/02/2024 9:51 AM ELECTRICIAN HELPER Who is calling? Esme with [facility] Administrators [phone] If other than self is caller listed on the HIPAA? no What is the reason for call? Caller is calling for update. Patient is trying to fill script with pharmacy. Need prior authorization on Belsomra 20 mg and Lisdexamfetamine quantity to be adjusted. The 60 exceeds quantity limit need change from 10 mg. Asking regarding change to 20 mg for 30 quantity and 30 days . See patient message 11/19 regarding update. Sent to Cover My Med but it needs to be sent to [employer] prior authorization. Phone number [phone] Expected Response from the Clinic? ( ex. Call back, etc..) Update on prior authorization and scriptquantity adjustment. Follow up with patient. Request for prior authorization pending since 11/19 message process ERIK. Did you notify caller it would take 24-48 hours for the office to get back to them? YES, but sending request with high priority TRICIAN HELPER documented in this encounter Plan of Treatment Upcoming Encounters Date Type Department Care Team (Late st Contact Info) Description 01/22/2025 9:30 AM CDT Office Visit [facility] - Internal Medicine [address] [place] [phone] Tomasa Srivastava, FORGING PRESS OPERATOR-CRO [address] [place] [phone] 04/07/2025 10:40 AM CDT Office Visit [facility] - Internal Medicine [address] [place] [phone] Paty Rahman MD [address] [place] [phone] documented as of this encounter Visit Diagnoses Not on filedocumented in this encounter Care Teams Information Systems Coordinator Relationship Specialty Start Date End Date Paty Rahman MD [address] [place] [phone] PCP - General Internal Medicine 05/09/24 documented as of this encounter
--- OUTSIDE RECORDS SUMMARY | 2025-01-20 17:18 | XMS_ITS | Patient Health Record ---
Author Organization [facility] Address [address] [facility] [address] [place] [address] Care Team Providers Care Transit Planning Director Name Role Phone Tucker [place], Key Primary Care Provider Unavail able ENIO [place]KE[place], INGRID Unavailable ALLERGIES Allergen (clinical drug ingredient) Drug/Non Drug Allergy documented on EMR Reaction Allergy Type Onset Date Status tape (uncoded) Unknown Allergy Activ e ciprofloxacin Cipro Unknown Drug Allergy Act josué duloxetine Duloxetine HCl Unknown Drug Allergy A ctive metronidazole Metrogel Unknown Drug Allergy Act josué REASON FOR REFERRAL No Information MEDICATIONS Medication SIG (Take, Route, Frequency, Duration) Notes Start Date End Date Status Xanax 0.25 MG 1 tablet Orally Twic e a day Active Estazolam 2 MG 1 tablet at bedtime as needed Orally Once a day Active tiZANidine HCl 4 MG 1 tablet as needed Orally Three times a day 1-3 tabs TID Active Propranolol HCl 20 MG 1 tablet on an emp ty stomach Orally Once a day BID Active Xulane 150-35 MCG/24HR 1 patch to skin Transdermal Active HYDROcodone-Acetaminophe n 5-325 MG 1 tablet as needed Orally every 6 hrs prn Active Amitriptyline HCl 25 MG 1 tablet at bedt alex Orally Once a day Active Benadryl Allergy 25 MG 1 tablet as neede d Orally every 8 hrs Active SOCIAL HISTORY Tobacco Use: Social History Observation Description Date Details (start date - stop date) Former Smoker NA - NA Sex Assigned At : Social History Observation Description Sex Assigned At Unknown Tobacco Use/Smoking Question Answer Notes Are you a former smoker How long has it been since you last smoked? > 10 years Additional Findings: Tobacco Non-User Current no n-smoker PLAN OF TREATMENT No Information Insurance Providers Payer Name Payer Address Payer Phone Subscriber Number Group Number Insured Name Patient Relationship to Insured Coverage Start Date Coverage End Date [address] [place] [address] [id number] Fredi Verduzco Self - patient is the insured MEDICAL (GENERAL) HISTORY Medical History History ICD Code Anxiety/depression Asthma GERD Cholelithiasis Hx acute pancreatitis IBS Hemorrhoids Fibromyalgia Migraines Josias Danlos Syndrome TMJ Insomnia Surgical History Surgery Date(Month/Year) ACL Jaw reconstruction Appendectomy Cholecystectomy
--- OUTSIDE RECORDS SUMMARY | 2025-01-20 17:18 | XMS_ITS | Encounter Summary ---
Author Organization [facility] Address [address] [facility] [place] [address] Care Team Providers Care Bridge Construction Inspector Name Role Phone Paty Rahman MD Primary Care Provider [phone] Reason for Visit * Reason Comments Pain Abdominal Encounter Details Date Type Department Care Team (Late st Contact Info) Description 01/20/2025 4:44 PM CDT Emergency [facility] EM[facility]GENCY DEPARTMENT [address] [place] [phone] Social History Tobacco Use Types Packs/Day Years [...] on file Legal Sex Female 10:08 AM GLACIOLOGIST Gender Identity Female 03/31/2022 6:45 PM CDT Sexual Orientation Not on file documented as of this encounter Last Filed Vital Signs Vital Sign Reading [...] Mass Index 29.05 01/20/2025 4:46 PM CDT documented in this encounter ED Notes * Junior Paulson, RN - 01/20/2025 4:45 PM CDT Pt presented to ED via EMS from for abd pain and was diagnosed w/ hiatal hernia. No interventions w/ EMS towboat captain. Pt is a/ox4, no signs of distress. documented in this encounter Plan of Treatment Upcoming Encounters Date Type Department Care Team (Late st Contact Info) Description 01/22/2025 9:30 AM CDT Office Visit [facility] - Internal Medicine [address] [place] [phone] Tomasa Srivastava, WORKERS COMPENSATION ANALYST-[address] [phone] 04/07/2025 10:40 AM CDT Office Visit [facility] - Internal Medicine [address] [place] [phone] Paty Rahman MD [address] [place] [phone] documented as of this encounter Visit Diagnoses Not on filedocumented in this encounter Care Teams Bridge Construction Inspector Relationship Specialty Start Date End Date Paty Rahman MD [address] [place] [phone] PCP - General Internal Medicine 05/09/24 documented as of this encounter
--- OUTSIDE RECORDS SUMMARY | 2025-01-20 17:18 | XMS_ITS | Encounter Summary ---
Author Organization [facility] Address [address] [facility] [place] [address] Care Team Providers Care Straightedge Machine Operator Helper Name Role Phone Paty Rahman MD Primary Care Provider [phone] Reason for Visit * Reason Onset Date Comments Pain Abdominal 01/20/2025 Encounter Details Date Type Department Care Team (Late st Contact Info) Description 01/20/2025 Telephone [facility] Medical [facility] - Internal Medicine [address] [facility] [address] [place] [phone] Paty Rahman MD [address] [place] [phone] Pain Abdominal Social History Tobacco Use Types Packs/Day Years [...] on file Legal Sex Female 10:08 AM INDUSTRIAL ROOFER Gender Identity Female 03/31/2022 6:45 PM CDT Sexual Orientation Not on file documented as of this encounter Miscellaneous Notes * Telephone Encounter - HensonEloisa herrera Abhinav - 01/20/2025 8:50 AM CDT The patient called reporting abdominal pain , level 8. The call was warm transferred to clinical at the provider's office. documented in this encounter Plan of Treatment Upcoming Encounters Date Type Department Care Team (Late st Contact Info) Description 01/22/2025 9:30 AM CDT Office Visit [facility] Internal Medicine [address] [place] [phone] Tomasa Srivastava, STREETCAR CONDUCTOR-SYSTEM ANALYST [address] [place] [phone] 04/07/2025 10:40 AM CDT Office Visit [facility] Internal Medicine [address] [place] [phone] Paty Rahman MD [address] [place] [phone] documented as of this encounter Visit Diagnoses Not on filedocumented in this encounter Care Teams Straightedge Machine Operator Helper Relationship Specialty Start Date End Date Paty Rahman MD [address] [place] [phone] PCP - General Internal Medicine 05/09/24 documented as of this encounter
--- OUTSIDE RECORDS SUMMARY | 2025-01-20 17:22 | XMS_ITS | Continuity of Care Document ---
Author Organization [facility] Address [address] [place] [address] Phone Care Team Providers Care Salesperson Wigs Name Role Phone Paty Toussaint Unavailable Unavailab le Procedures Procedure Date ENDOSCOPIC ULTRASOUND EXAM UPPER GI ENDOSCOPY BIOPSY Advance Directives Directive Yes / No Effective Date File Name No Information Encounters Encounter Description Practice Location Reason(s) For Visit Diagnoses Date Provider Providers Copied on Encounter [facility], [address], [place], [place], [address], tel:[phone] [facility] No Information [address]. [address] [place], [place], [id number] , [place]. tel: [phone] Ravel Law, [address], [place], [place], [address], [place] tel:[phone] [facility] No Information [address] [facility] [address], [place], [address], [place]. tel: [phone] Referring Provider: Key Ceballos, [address] [place], [address]. tel:[phone] Ravel Law, [address], [place], [place], [address], [place] tel:[phone] [facility] Acute pancreatitis, unspecified complication status, unspecified pancreatitis type [address], [place], [address], [place]. tel: [phone] Family History Family Member Type Diagnosis Age At Onset No Information Payers Payer name Insurance type Covered alliance party ID Authorfaisal malin(s) No Information Social History [...]
--- OUTSIDE RECORDS SUMMARY | 2025-01-20 17:22 | XMS_ITS | Encounter Summary ---
Author Organization [facility] Address [facility] access hospital[facility] [place] [address] Care Team Providers Care Cat Skinner Name Role Phone Key Ceballos MD Primary Care Provider [phone] Shasha Duckworth NP Primary Care Provider [phone] Gabriele Torres MD Primary Care Provider Encounter Details Date Type Department Care Team (Late st Contact Info) Description 07/18/2013 Abstract [facility] CONVERSION [address] [place] [address] , Home Bassett MD Social History Tobacco Use Types Packs/Day Years Used Date Smoking Tobacco: Never Assessed Comments Unknown Sex and Gender Information Value Date Recorded Sex Assigned at Not on file Legal Sex Female 9:55 PM CDT Gender Identity Not on file Sexual Orientation Not on file documented as of this encounter Plan of Treatment Not on file documented as of this encounter Visit Diagnoses Not on filedocumented in this encounter Additional Health Concerns Infection Onset Date Last Indicated Resolved Time COVID-19 Rule Out 11/29/2023 11/29/2023 11/29/2023 2:12 PM NON CLINICAL ADVISOR documented as of this encounter Care Teams Cat Skinner Relationship Specialty Start Date End Date Key Ceballos MD PCP - General INTERNAL MEDICINE 09/05/18 01/12/23 Shasha Duckworth NP [address] [place] [address] PCP - General NURSE PRACTITIONER 02/15/23 01/25/24 Gabriele Torres MD [address] [place] [address] PCP - General INTERNAL MEDICINE 01/26/24 documented as of this encounter
--- OUTSIDE RECORDS SUMMARY | 2025-01-20 17:22 | XMS_ITS | Encounter Summary ---
Author Organization [facility] Address [facility] [place] [address] Care Team Providers Care Sports Teacher Name Role Phone Shasha Duckworth NP Primary Care Provider [phone] Gabriele Torres MD Primary Care Provider [phone] Encounter Details Date Type Department Care Team (Late st Contact Info) Description 05/26/2023 [employer] Message Enc [facility] Medical Group Family Medicine - [place] [address] [facility] [address] [place] [id number] Shasha Duckworth NP [address] [place] [address] Carlos Social History Tobacco Use Types Packs/Day Years Used Date Smoking Tobacco: Former Cigarettes Q uit: 2008 Passive Smoke Exposure: Past Smokeless Tobacco: Never Alcohol Use Standard Drinks/Week Comments Yes 0 (1 standard drink = 0.6 oz pur e alcohol) on occasion. AUDIT-C Answer Date Recorded Q1: How often do you have a drink containing alc ohol? Monthly or less 12/30/2020 Q2: How many drinks containi ng alcohol do you have on a typical day when you are drinking? 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 Not on file Not on file Not o n file documented as of this encounter Plan of Treatment Not on file documented as of this encounter Visit Diagnoses Not on filedocumented in this encounter Additional Health Concerns Infection Onset Date Last Indicated Resolved Time COVID-19 Rule Out 11/29/2023 11/29/2023 11/29/2023 2:12 PM MICROARRAY ANALYST Assessment Noted Time PHQ-9 Depression Total Score: 4 11/30/19 11:00 AM MICROARRAY ANALYST documented as of this encounter Care Teams Sports Teacher Relationship Specialty Start Date End Date Shasha Duckworth NP [address] [place] [address] PCP - General NURSE PRACTITIONER 02/15/23 01/25/24 Gabriele Torres MD [facility] [place] [address] PCP - General INTERNAL MEDICINE 01/26/24 documented as of this encounter
--- OUTSIDE RECORDS SUMMARY | 2025-01-20 17:22 | XMS_ITS | Encounter Summary ---
Author Organization [facility] Address [facility] [place] [address] Care Team Providers Care Retail Store Clerk Name Role Phone Shasha Duckworth NP Primary Care Provider [phone] Gabriele Torres MD Primary Care Provider [phone] Encounter Details Date Type Department Care Team (Late st Contact Info) Description 09/07/2023 [employer] Message Enc [facility] Medical Group Family Medicine - [place] [address] [facility] [address] [place] [phone] Shasha Duckworth NP [address] [place], [place] [address] Blood in stool Social History Tobacco Use Types Packs/Day Years [...] Rule Out 11/29/2023 11/29/2023 11/29/2023 2:12 PM INSTRUCTOR BUSINESS EDUCATION Assessment Noted Time PHQ-9 Depression Total Score: 4 11/30/19 11:00 AM INSTRUCTOR BUSINESS EDUCATION documented as of this encounter Care Teams Retail Store Clerk Relationship Specialty Start Date End Date Shasha Duckworth NP [address] [place] [address] PCP - General NURSE PRACTITIONER 02/15/23 01/25/24 Gabriele Torres MD Formerly named [facility] [place] [address] PCP - General INTERNAL MEDICINE 01/26/24 documented as of this encounter
--- OUTSIDE RECORDS SUMMARY | 2025-01-20 17:22 | XMS_ITS | Encounter Summary ---
Author Organization [facility] Address [facility]ly [facility]6 [place] [address] Care Team Providers Care Pole Frame Construction Worker Name Role Phone Key Ceballos MD Primary Care Provider [phone] Shasha Duckworth NP Primary Care Provider [phone] Gabriele Torres MD Primary Care Provider [phone] Encounter Details Date Type Department Care Team (Late st Contact Info) Description 12/01/2022 [employer] Message Enc [facility] Medical Group Family & Internal Medicine [facility] [address] [place] [address] [place] [address] [place] [address] Question regarding HEPATIC FUNCTION PANEL Social History Tobacco Use Types Packs/Day Years Used Date Smoking Tobacco: Former Cigarettes Q uit: 2008 Smokeless Tobacco: Never Alcohol Use Standard Drinks/Week [...] Not on file Not o n file COVID-19 Exposure Response Date Recorded In the last 10 days, have yo u been in contact with someone who was confirmed or suspected to have Coronavirus/COVID-19? No / Unsure 11/30/2022 10:32 AM BATH SOLUTION MAKER documented as of this encounter Progress Notes * Ainsley Franklin RN - 12/01/2022 10:23 AM CST Please advise SOLUTION MAKER documented in this encounter Plan of Treatment Not on file documented as of this encounter Visit Diagnoses Not on filedocumented in this encounter Additional Health Concerns Infection Onset Date Last Indicated Resolved Time COVID-19 Rule Out 11/29/2023 11/29/2023 11/29/2023 2:12 PM BATH SOLUTION MAKER Assessment Noted Time PHQ-9 Depression Total Score: 4 11/30/19 11:00 AM BATH SOLUTION MAKER documented as of this encounter Care Teams Pole Frame Construction Worker Relationship Specialty Start Date End Date Key Ceballos MD PCP - General INTERNAL MEDICINE 09/05/18 01/12/23 Shasha Duckworth NP [address] [place] [address] PCP - General NURSE PRACTITIONER 02/15/23 01/25/24 Gabriele Torres MD [address] [place] [address] PCP - General INTERNAL MEDICINE 01/26/24 documented as of this encounter
--- OUTSIDE RECORDS SUMMARY | 2025-01-20 17:22 | XMS_ITS | Encounter Summary ---
Author Organization [facility] Address [facility] [place] [address] Care Team Providers Care Form Tamping Machine Operator Name Role Phone Key Ceballos MD Primary Care Provider [phone] Shasha Duckworth NP Primary Care Provider [phone] Gabriele Torres MD Primary Care Provider [phone] Encounter Details Date Type Department Care Team (Late st Contact Info) Description 12/06/2022 [employer] Message Enc [facility] Medical Group Family & Internal Medicine [address] [address] [facility] Provider lidocaine patch Social History Tobacco Use Types Packs/Day Years [...] Coronavirus/COVID-19? No / Unsure 11/30/2022 10:32 AM BMW SERVICE TECHNICIAN documented as of this encounter Plan of Treatment Not on file documented as of this encounter Visit Diagnoses Not on filedocumented in this encounter Additional Health Concerns Infection Onset Date Last Indicated Resolved Time COVID-19 Rule Out 11/29/2023 11/29/2023 11/29/2023 2:12 PM BMW SERVICE TECHNICIAN Assessment Noted Time PHQ-9 Depression Total Score: 4 11/30/19 11:00 AM BMW SERVICE TECHNICIAN documented as of this encounter Care Teams Form Tamping Machine Operator Relationship Specialty Start Date End Date Key Ceballos MD PCP - General INTERNAL MEDICINE 09/05/18 01/12/23 Shasha Duckworth NP [address] [place] [address] PCP - General NURSE PRACTITIONER 02/15/23 01/25/24 Gabriele Torres MD [address] [place] [address] PCP - General INTERNAL MEDICINE 01/26/24 documented as of this encounter
--- OUTSIDE RECORDS SUMMARY | 2025-01-20 17:22 | XMS_ITS | Clinical Summary ---
Author Organization [facility] Address [address] [place] [address] Care Team Providers Care Clean Up Supervisor Name Role Phone Gabriele Torres MD Primary Care Provider [phone] Allergies Active Allergy Reactions Criticality Noted Date Comments Baclofen Other (see comment) 02/15/2023 Cause low bp Ciprofloxacin Throat swelling High 02/15/2023 Clindamycin Other (see comment) High 03/01/2019 Feels like I swallowed glass Duloxetine Other (see comment),Joint Pain High 03/27/2013 Patient is unsure if reaction is correct. Metronidazole Itching,Other (see comment),Unknown High 12/21/2018 METRONIDAZOLE GEL AND PILLS- Discharge and Pain Milnacipran Other (see comment),Joint Pain High 03/18/2016 Patient is unsure about reaction. But states the reaction at the time was very bad. Pregabalin Hallucinations,Other (see comment) High 03/01/2019 hallucinations Protective Adhesive Powder Rash Medium 04/02/2015 Tape Rash Medium 10/24/2017 Zolpidem Hallucinations 11/08/2023 Medications Elastic Bandages & Supports (CERVICAL COLLAR) MiscIndications: Chronic neck pain 1 Device by Does not apply route daily. ASPEN COLLAR FOR NECK PAIN & INSTABILITY 1 each 0 Active amitriptyline (ELAVIL) 25 MG tabletIndication s:Insomnia, persistent Take 2 tablets (50 mg total) by mouth nightly at bedtime. 180 tablet 3 3 Active Additional Information Patient taking differently: 25 mgOral Nightly at bedtime, Reported on 02/15/2023 metoprolol succinate ER (TOPROL-XL) 50 MG 24 hr tabletIndication s:Palpitations Take 1 tablet (50 mg total) by mouth 2 (two) times daily. 180 tablet 3 3 Active cholestyramine light (QUESTRAN) 4 G packetIndication s:Diarrhea, unspecified type DISSOLVE CONTENTS OF 1/2 PACKET IN LIQUID AND DRINK THREE TIMES DAILY WITH MEALS 135 each 11 4 Active HYDROcodone-acet aminophen (NORCO) 7.5-325 MG tabletIndication s:Chronic Pain Take 1 tablet by mouth every 8 (eight) hours as needed for Pain. Indications: Chronic Pain 90 tablet 4 Active ALPRAZolam (XANAX) 1 MG tabletIndication s:Generalized anxiety disorder TAKE 1 TABLET(1 MG) BY MOUTH TWICE DAILY NEEDED 60 tablet 4 Active Suvorexant (BELSOMRA) 20 MG TabIndications:I nsomnia, persistent Take 1 tablet by mouth nightly at bedtime. at bedtime 30 tablet 4 Active tiZANidine (ZANAFLEX) 4 MG tabletIndication s:Josias-Danlos syndrome (HHS/HCC),Muscle spasm,Chronic pain of multiple sites TAKE 2 TABLETS BY MOUTH EVERY 6 HOURS NEEDED( UP TO 9 TABLETS PER DAY) 270 tablet 3 4 Active Active Problems Problem Noted Date Diagnosed Date Folic acid deficiency 01/09/2023 COVID 10/31/2021 Bradycardia 04/13/2020 Dehydration 03/17/2020 Myofascial pain 03/01/2019 Night sweats 06/26/2018 Vaginal discharge 02/09/2018 Pancreatitis (HHS/HCC) 11/28/2017 Knee pain, bilateral 06/14/2017 ADD (attention deficit disorder) 03/13/2017 Renal colic 01/11/2017 POTS (postural orthostatic tachycardia syndrome) 03/28/2016 Insomnia, persistent 08/19/2014 Jaw pain 08/19/2014 Esophageal spasm 01/29/2014 Dysphagia, oropharyngeal phase 12/23/2013 Chronic fatigue syndrome 03/27/2013 Chronic pain of multiple sites 03/27/2013 Josias-Danlos syndrome (HHS/HCC) 03/27/2013 Fibromyalgia 03/27/2013 Generalized anxiety disorder 03/27/2013 Palpitations 03/27/2013 Sleep stage dysfunction 03/27/2013 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 03/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3 ML DOSE 12/10/2020 Tdap (Generic) 09/04/2022,04/09/2015 Family History Medical History Relation Comments Alcohol Abuse Brother Liver Disease Brother Arthritis Father Asthma Father Skin cancer Father basal cell carci noma Heart Attack Maternal Aunt Stroke Maternal Aunt Heart Attack Maternal Grandfather Arthritis Maternal Grandmother Heart Attack Maternal Grandmother Arthritis Mother Diabetes Mother Heart Mother Stomach cancer Paternal Grandfather Stroke Paternal Grandmother Alcohol Abuse Paternal Uncle Coma - etiology unknown Paternal Uncle Thyroid Disease Sister Relation Status Comments Brother Alive Father Alive Maternal Aunt Alive Maternal Grandfather Maternal Grandmother Mother Alive Paternal Grandfather Paternal Grandmother Paternal Uncle (Age 63) found in coma, etiology unknown Sister Alive Social History Tobacco Use Types Packs/Day Years Used Date Smoking Tobacco: Former Cigarettes 0.3 2 2 006 - 2008 Passive Smoke Exposure: Past Smokeless Tobacco: Never Tobacco Cessation:Counseling Given: Not Answered Alcohol Use Standard Drinks/Week Comments Not Currently 1 (1 standard drink = 0.6 oz pure alcohol) 1-4 drinks weekly/or twice a month AUDIT-C Answer Date Recorded Q1: How often do you have a drink containing alc ohol? Monthly or less 12/30/2020 Q2: How many drinks containi ng alcohol do you have on a typical day when you are drinking? 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 Not on file Not on file Not o n file Last Filed Vital Signs Vital Sign Reading Time Taken Comments Blood Pressure 130/78 02/21/2024 1:17 PM CDT Pulse 81 02/21/2024 1:17 PM CDT Temperature 36.7 C (98.1 F) 02/21/2024 1:17 PM CDT Respiratory Rate 20 02/21/2024 1:17 PM CDT Oxygen Saturation 97% 02/21/2024 1:17 PM CDT Inhaled Oxygen Concentration - - Weight 79.2 kg (174 lb 9.6 oz) 02/21/2024 1:17 P M CDT Height 167.6 cm (5' 6 ) 02/21/2024 1:17 PM CDT Body Mass Index 28.18 02/21/2024 1:17 PM CDT Plan of Treatment Health Maintenance Due Date Last Done Comments Pneumococcal Vaccine: Pediatrics (0 to 5 Years) and At-Risk Patients (6 to 49 Years) (1 of 2 - PCV) 1994 Hepatitis C 2006 Hepatitis B Vaccines (1 of 3 - 19+ 3-dose series) 2007 Annual Physical 05/10/2024 05/10/2023 COVID-19 Vaccine ( season) 2024 10/27/2021, 01/02/2021, 12/10/2020 PHQ-2 (Physician [place]) 10/09/2024 11/29/2023 Cervical Cancer Screening Pap Smear (Age 30 to 64) Every 3 Years 02/22/2025 02/22/2022, 02/22/2022, 02/22/2022, Additional history exists Cervical Cancer Screening Pap with HPV Testing (Age 30 to 64) Every 5 Years 02/22/2027 02/22/2022, 05/27/2021, 03/11/2021 Cervical Cancer Screening with HPV 02/22/2027 DTaP, Tdap and Td Vaccines (3 - Td or Tdap) 09/04/2032 09/04/2022, 04/09/2015 HPV Vaccines Aged Out No longer eligi ble based on patient's age to complete this topic Meningococcal B Vaccine Aged Out No l onger eligible based on patient's age to complete this topic Meningococcal Vaccine Aged Out No ramin kristan eligible based on patient's age to complete this topic RSV Immunizations Under 20 Months Aged Out No longer eligible based on patient's age to complete this topic Procedures Procedure Name Priority Date/Time Associated Diagnosis Comments OUTSIDE CYTOPATH CERV/VAG INTERPRET (PAP) (SCAN ORDER) Routine 03/20/2018 12:00 AM CDT from Last 3 Months or Most Recently Relevant to Health Maintenance Results * PAP SMEAR (03/20/2018 12:00 AM CDT) 03/20/2018 us Documents Scanned SCANNING Final Result [facility] [place] from Last 3 Months or Most Recently Relevant to Health Maintenance Insurance MEDICAID UHC Advance Directives * Full Code (Latest Code Status on File) Date Activated Date Inactivated Comments 04/13/2020 4:13 AM 04/13/2020 2:31 PM Care Teams Clean Up Supervisor Relationship Specialty Start Date End Date Gabriele Torres MD [address] [place] [address] PCP - General INTERNAL MEDICINE 01/26/24
--- OUTSIDE RECORDS SUMMARY | 2025-01-20 17:22 | XMS_ITS | Encounter Summary ---
Author Organization [facility] Address [facility] [place] [address] Care Team Providers Care Supervisor Dry Cell Assembly Name Role Phone Shasha Duckworth NP Primary Care Provider [phone] Gabriele Torres MD Primary Care Provider [phone] Encounter Details Date Type Department Care Team (Late st Contact Info) Description 03/16/2023 [employer] Message Enc [facility] Medical Group Family Medicine - [place] [address] [facility] [address] [place] [phone] Shasha Duckworth NP [address] [place], [place] [address] Liver problems Social History Tobacco Use Types Packs/Day [...] suspected to have Coronavirus/COVID-19? No / Unsure 02/15/2023 1:45 PM CDT documented as of this encounter Plan of Treatment Not on file documented as of this encounter Visit Diagnoses Not on filedocumented in this encounter Additional Health Concerns Infection Onset Date Last Indicated Resolved Time COVID-19 Rule Out 11/29/2023 11/29/2023 11/29/2023 2:12 PM WEB PROJECT MANAGER Assessment Noted Time PHQ-9 Depression Total Score: 4 11/30/19 23 11:00 AM WEB PROJECT MANAGER documented as of this encounter Care Teams Supervisor Dry Cell Assembly Relationship Specialty Start Date End Date Shasha Duckworth NP [address] [place] [address] PCP - General NURSE PRACTITIONER 02/15/23 01/25/24 Gabriele Torres MD [address] [place] [address] PCP - General INTERNAL MEDICINE 01/26/24 documented as of this encounter
--- OUTSIDE RECORDS SUMMARY | 2025-01-20 17:22 | XMS_ITS | Encounter Summary ---
Author Organization [facility] Address [facility] [place] [address] Care Team Providers Care Seismograph Helper Name Role Phone Key Ceballos MD Primary Care Provider [phone] Shasha Duckworth NP Primary Care Provider [phone] Gabriele Torres MD Primary Care Provider [phone] Encounter Details Date Type Department Care Team (Late st Contact Info) Description 05/24/[address] [facility] Medical Group Family & Internal Medicine [facility] [address] [place] [phone] [place] C[place]os [place] [id number] [place] [address] Question regarding HEPATIC FUNCTION PANEL Social [...] on file 12/08 PHQ-2 Answer Date Recorded PHQ-2 Score - If the patient scores above 3, please move on to questions 3-9 0 11/09/2021 Comments No Sex and Gender Information Value [...] suspected to have Coronavirus/COVID-19? No / Unsure 05/23/2022 1:06 PM CDT documented as of this encounter Progress Notes * Ainsley Franklin RN - 05/25/2022 3:59 PM CDT . * Ainsley Franklin RN - 05/24/2022 5:02 PM CDT . documented in this encounter Plan of Treatment Not on file documented as of this encounter Visit Diagnoses Not on filedocumented in this encounter Additional Health Concerns Infection Onset Date Last Indicated Resolved Time COVID-19 Rule Out 11/29/2023 11/29/2023 11/29/2023 2:12 PM SEARCH ENGINEER Assessment Noted Time PHQ-9 Depression Total Score: 2 11/09/19 22 10:49 AM SEARCH ENGINEER documented as of this encounter Care Teams Seismograph Helper Relationship Specialty Start Date End Date Key Ceballos MD PCP - General INTERNAL MEDICINE 09/05/18 01/12/23 Shasha Duckworth NP [address] [place] [address] PCP - General NURSE PRACTITIONER 02/15/23 01/25/24 Gabriele Torres MD [address] [place] [address] PCP - General INTERNAL MEDICINE 01/26/24 documented as of this encounter
--- OUTSIDE RECORDS SUMMARY | 2025-01-20 17:22 | XMS_ITS | Encounter Summary ---
Author Organization [facility] Address [facility] [place] [address] Care Team Providers Care Forensic Science Examiner Name Role Phone Shasha Duckworth NP Primary Care Provider [phone] Gabriele Torres MD Primary Care Provider [phone] Reason for Visit * Reason Onset Date Comments Other 12/08/2023 Encounter Details Date Type Department Care Team (Late st Contact Info) Description 12/08/2023 What[employer] On [employer]ie Message Enc [facility] Medical Group Family Medicine - [place] [address] [facility] [address] [place] [phone] Shasha Duckworth NP [address] [place] [address] ADA Accomodations Social History Tobacco Use Types Packs/Day Years [...] n file documented as of this encounter Progress Notes * Mireille Swift - 12/11/2023 1:40 PM CST Pt is calling to see if Shasha has seen her [employer] message and wants to know when she will respond. ING MACHINE SET UP OPERATOR documented in this encounter Plan of Treatment Not on file documented as of this encounter Visit Diagnoses Not on filedocumented in this encounter Additional Health Concerns Assessment Noted Time PHQ-9 Depression Total Score: 4 11/30/19 23 11:00 AM LAPPING MACHINE SET UP OPERATOR documented as of this encounter Care Teams Forensic Science Examiner Relationship Specialty Start Date End Date Shasha Duckworth NP [address] [place] [address] PCP - General NURSE PRACTITIONER 02/15/23 01/25/24 Gabriele Torres MD [address] [place] [address] PCP - General INTERNAL MEDICINE 01/26/24 documented as of this encounter
--- OUTSIDE RECORDS SUMMARY | 2025-01-20 17:22 | XMS_ITS | Encounter Summary ---
Author Organization [facility] Address [facility] [place] [address] Care Team Providers Care Electrical Unit Rebuilder Name Role Phone Shasha Duckworth NP Primary Care Provider [phone] Gabriele Torres MD Primary Care Provider Encounter Details Date Type Department Care Team (Late st Contact Info) Description 11/24/2023 Aimetis Message Enc [facility] Medical Group Family Medicine - [place] [address] [facility] [address] [place] [phone] Shasha Duckworth NP [address] [place] [address] [facility] Social History Tobacco Use Types Packs/Day Years [...] Rule Out 11/29/2023 11/29/2023 11/29/2023 2:12 PM SHAREMILKER Assessment Noted Time PHQ-9 Depression Total Score: 4 11/30/19 11:00 AM SHAREMILKER documented as of this encounter Care Teams Electrical Unit Rebuilder Relationship Specialty Start Date End Date Shasha Duckworth NP [address] [place] [address] PCP - General NURSE PRACTITIONER 02/15/23 01/25/24 Gabriele Torres MD [facility] [place] [address] PCP - General INTERNAL MEDICINE 01/26/24 documented as of this encounter
--- OUTSIDE RECORDS SUMMARY | 2025-01-20 17:22 | XMS_ITS | Continuity of Care Document ---
Author Organization [facility] Address [address] [place] [address] Phone Care Team Providers Care Handle Bar Assembler Name Role Phone Messina OD, Jack Unavailable Unavailable Procedures Procedure Date Contact Lens Hydrophilic, Spherical Medical [facility] Eye Exam & Treatment Contact Lens Hydrophilic, Spherical [facility] Refraction Contact Lens/es Other Type [facility] Eye Exam & Treatment Refraction CL Replacement - [employer] Disp W/BW Soft [facility] CL Replacement - [employer] Disp W/BW Soft [facility] CL Replacement - [employer] Disp W/BW Soft [facility] Eye Exam & Treatment Refraction CL Replacement - [employer] Disp W/BW Soft [facility] CL Replacement - [employer] Disp W/BW Soft [facility] CL Replacement - [employer] Disp W/BW Soft [facility] Eye Exam, New Patient Refraction Advance Directives Directive Yes / No Effective Date File Name No Information Encounters Encounter Description Practice Location Reason(s) For Visit Diagnoses Date Provider Providers Copied on Encounter [facility], [address], [place], [place], [id number], [place] tel:[phone] [facility] No Information Sep 6-201 0 Messina OD Jack. [address] , [address], [place], [place], [facility], [place]. tel:[phone] Referring Provider: Jack Messina OD A, [address], [place], [facility]. tel:[phone] [facility], [address], [place], [place], [id number], [place] tel:[phone] [facility] No Information 9-201 0 Messina OD Jack. [address] , [address], [place], [facility], [place]. tel:[phone] [facility], [address], [place], [place], [id number], [place] tel:[phone] [facility] No Information 2 4-200 9 Messina OD Jack. [address] , [address], [place], [facility], [place]. tel:[phone] [facility], [address], [place], [place], [id number], [place] tel:[phone] [facility] No Information Fe-2 6-200 9 Messina OD Jack. [address], [place], [facility], [place]. tel:[phone] [facility], [address], [place], [place], [id number], [place] tel:[phone] [facility] No Information Apr- 4-200 8 Messina OD Jack. [address] , [address], [place], [facility], [place]. tel:[phone] [facility], [address], [place], [place], [id number], tel:[phone] [facility] No Information Tyrone-0 2-200 8 Messina OD Jack. [address] , [address], [place], [facility], . tel:[phone] [facility], [address], [place], [place], [id number], tel:[phone] [facility] No Information Oct-2 4-200 8 Messina OD Jack. [address] , [address], [place], [facility], . tel:[phone] [facility], [address] [place] [address] [address], [place], [place], [id number], tel:[phone] [facility] No Information Tyrone-0 8-200 7 Messina OD Jack. [address] , [address], [place], [facility], . tel:[phone] [facility], [address] [place] [address] [address], [place], [place], [address], tel:[phone] [facility] No Information 2 5-200 7 Messina OD Jack. [address] , [address], [place], [facility], . tel:[phone] [facility], [address] [place] [address] [address], [place], [place], [id number], tel:[phone] [facility] No Information Oct-0 9-200 7 Messina OD Jack. [address] , [address], [place], [facility], . tel:[phone] Family History Family Member Type Diagnosis Age At Onset No Information Payers Payer name Insurance type Covered alliance party ID Authoriza tion(s) No Information Social [...]
--- OUTSIDE RECORDS SUMMARY | 2025-01-20 17:22 | XMS_ITS | Encounter Summary ---
Author Organization [facility] Address [facility] [place] [address] Care Team Providers Care Solutions Specialist Name Role Phone Shasha Duckworth NP Primary Care Provider [phone] Gabriele Torres MD Primary Care Provider [phone] Encounter Details Date Type Department Care Team (Late st Contact Info) Description 02/16/2023 Best Teachert Message Enc [facility] Family [facility] - [place] [address] [facility] [address] [place] [address] [phone] Shasha Duckworth NP [address] [place] [address] Naltrexone Social History Tobacco Use Types Packs/Day Years [...] Rule Out 11/29/2023 11/29/2023 11/29/2023 2:12 PM COAL HAULER Assessment Noted Time PHQ-9 Depression Total Score: 4 11/30/19 23 11:00 AM COAL HAULER documented as of this encounter Care Teams Solutions Specialist Relationship Specialty Start Date End Date Shasha Duckworth NP [address] [place] [address] PCP - General NURSE PRACTITIONER 02/15/23 01/25/24 Gabriele Torres MD [address] [place] [address] PCP - General INTERNAL MEDICINE 01/26/24 documented as of this encounter
--- OUTSIDE RECORDS SUMMARY | 2025-01-20 17:22 | XMS_ITS | Encounter Summary ---
Author Organization [facility] Address [facility] [place] [address] Care Team Providers Care Agricultural Commodities Inspector Name Role Phone Shasha Duckworth NP Primary Care Provider [phone] Gabriele Torres MD Primary Care Provider [phone] Encounter Details Date Type Department Care Team (Late st Contact Info) Description 05/30/2023 Gucasht Message Enc [facility] Family Medicine - [place] [address] [facility] [address] [place] [phone] Shasha Duckworth NP [address] [place] [address] Naltraxone/Pain medication Social History Tobacco Use Types Packs/Day Years [...] Rule Out 11/29/2023 11/29/2023 11/29/2023 2:12 PM BEEF SKINNER Assessment Noted Time PHQ-9 Depression Total Score: 4 11/30/19 23 11:00 AM BEEF SKINNER documented as of this encounter Care Teams Agricultural Commodities Inspector Relationship Specialty Start Date End Date Shasha Duckworth NP [address] [place] [address] PCP - General NURSE PRACTITIONER 02/15/23 01/25/24 Gabriele Torres MD [address] [place] [address] PCP - General INTERNAL MEDICINE 01/26/24 documented as of this encounter
--- OUTSIDE RECORDS SUMMARY | 2025-01-20 17:22 | XMS_ITS | Encounter Summary ---
Author Organization [facility] Address [facility] [place] [address] Care Team Providers Care Plumbing Mechanic Name Role Phone Shasha Duckworth NP Primary Care Provider [phone] Gabriele Torres MD Primary Care Provider [phone] Encounter Details Date Type Department Care Team (Late st Contact Info) Description 07/10/2023 Specpage Message Enc [facility] Family Medicine - [place] [address] [facility] [address] [place] [phone] Shasha Duckworth NP [address] [place] [address] Urgent Care Visit Social History Tobacco Use Types Packs/Day Years [...] Rule Out 11/29/2023 11/29/2023 11/29/2023 2:12 PM LOG MANAGER Assessment Noted Time PHQ-9 Depression Total Score: 4 11/30/19 11:00 AM LOG MANAGER documented as of this encounter Care Teams Plumbing Mechanic Relationship Specialty Start Date End Date Shasha Duckworth NP [address] [place] [address] PCP - General NURSE PRACTITIONER 02/15/23 01/25/24 Gabriele Torres MD [facility] [place] [address] PCP - General INTERNAL MEDICINE 01/26/24 documented as of this encounter
== END 2025-01-20 15:54 | disposition short-term general hospital (02) ==
PROVIDERS: Emergency Provider Nurse Practitioner Family
DX: R10.84 Generalized abdominal pain (principal); Z90.49 Acquired absence of other specified parts of digestive tract
CPT/HCPCS: 99205; G0463